=== PATIENT | female | born 1945 | race Caucasian/White ===

== ENCOUNTER 2016-11-18 15:56 | Inpatient (IN) | payer MEDICARE, MEDICAID ==
[~2016-11-18] VITALS: Ht 137.2 cm; Wt 56.2 kg
[2016-11-18] VITALS (20 sets, daily range): BP systolic 92–162; BP diastolic 35–80
[~2016-11-18 15:56] MED LIST: ACET-2605 GT; ACET160S3 GT; ALBU2.5V12 IH; AMIN30LI25 GT; ASCO500S2 GT; ASPI81TA2 GT; ATOR40TA GT; BISA10SU8 RC; BLOO-697 IN; CAPT25TA3 GT; DOCU50LI GT; EPOE1VIA6 SQ; FERR300L GT; FURO20TA4 GT; INSU100V3 SQ; IPRA0.2S9 IH; LACT-96 GT; LORA0.5T GT; MAGN400O6 GT; MONT10TA22 GT; MULT1TAB11 GT; MYCO500T5 GT; NA P133E RC; PANT40SU2 GT; PRED2.5T GT; RIVA10TA GT
[2016-11-18] MEDS ORDERED: ALBUTEROL FS 2.5 MG/3 ML VIAL.NEB ONE ×2 (16:14→17:19)
[2016-11-18] MEDS ORDERED: IPRATROPIUM NEB FS 0.5 MG/2.5 ML AMPUL.NEB ONE ×2 (16:14→17:19)
[2016-11-18] MEDS ORDERED: methylPREDNISolone SOD SUCC 125 MG/2ML VIAL ONE (16:18)
[2016-11-18] MEDS ORDERED: ALBUTEROL FS 2.5 MG/3 ML VIAL.NEB NEB ONE (16:30)
[2016-11-18] MEDS ORDERED: methylPREDNISolone SOD SUCC 125 MG/2ML VIAL IV ONE (16:30)
[2016-11-18] MEDS ORDERED: IPRATROPIUM NEB FS 0.5 MG/2.5 ML AMPUL.NEB NEB ONE ×2 (16:30→17:30)
[2016-11-18 16:35] LABS: DIFF TOTAL % 100 %; EOSINOPHILS # (AUTO) 0.5 /CMM (0.0-0.7); EOSINOPHILS % (AUTO) 4.2 % (0.0-6.0); HEMATOCRIT 39 % (33-45); HEMOGLOBIN 12.2 g/dL (11.5-14.8); LYMPHOCYTES # (AUTO) 0.4 /CMM (0.8-4.8); LYMPHOCYTES % (AUTO) 3.2 % (20.0-44.0); MEAN CORPUSCULAR HEMOGLOBIN 30 PG (26.0-33.0); MEAN CORPUSCULAR HGB CONC 31 g/dl (31.0-36.0); MEAN CORPUSCULAR VOLUME 95 fL (82-100); MONOCYTES # (AUTO) 0.4 /CMM (0.1-1.30); MONOCYTES % (AUTO) 3.6 % (2.0-12.0); PLATELET COUNT (AUTO) 309 /CMM (150-450); RED BLOOD CELL COUNT(AUTO) 4.12 MIL/uL (4.0-5.2); WHITE BLOOD COUNT (AUTO) 12.3 K/uL (4.3-11.0)
[2016-11-18 16:57] LABS: ANION GAP 11 (5-14); CALCIUM, SERUM 8.6 mg/dL (8.5-10.1); CARBON DIOXIDE 33 mmol/L (21-32); CHLORIDE 104 mmol/L (98-107); CREATININE 1.2 mg/dL (0.6-1.3); GLUCOSE 197 mg/dL (74-106); POTASSIUM 4.5 mmol/L (3.5-5.1); SODIUM SERUM 143 mmol/L (136-145); TROPONIN I < 0.017 ng/mL (0.00-0.056); UREA NITROGEN, BLOOD 30 mg/dL (7-18)
[2016-11-18 17:01] LABS: LACTIC ACID 2.1 mmol/L (0.4-2.0)
[2016-11-18 17:10] LABS: ALANINE AMINOTRANSFERASE 51 U/L (12-78); ALBUMIN 3.5 g/dL (3.4-5.0); ASPARTATE AMINOTRANSFERASE 37 U/L (15-37); BILIRUBIN,DIRECT 0.1 mg/dL (0.0-0.2); BILIRUBIN,TOTAL 0.4 mg/dL (0.2-1.0); INDIRECT BILIRUBIN 0.3 mg/dL (0.0-1.1); TOTAL PROTEIN, SERUM 7.9 g/dL (6.4-8.2)
[2016-11-18 17:15] LABS: INR 0.97 (0.87-1.13); PROTHROMBIN TIME 10.5 SECS (9.5-12.7)
[2016-11-18 17:27] LABS: *LACTIC ACID REFLEX FLAG YES
[2016-11-18] MEDS ORDERED: PIPERACILLIN /TAZOBACTAM 3.375 G in IV D5W 50 ML IV ONE (17:30)
[2016-11-18] MEDS ORDERED: VANCOMYCIN 1 GM in IV D5W 250 ML IV ONE (17:30)
[2016-11-18] MEDS ORDERED: ALBUTEROL FS 2.5 MG/3 ML VIAL.NEB CONTNEB ONE (17:30)
[2016-11-18] MEDS ORDERED: diphenhydrAMINE HCL 50 MG/ML VIAL IV ONE (17:30)
[2016-11-18] MEDS ORDERED: IV SET PRIMARY PUMP SET 1 EA INFUS.SET MC ONE ×2 (17:46→22:22)
[2016-11-18] MEDS ORDERED: diphenhydrAMINE HCL 50 MG/ML VIAL ONE (17:46)
[2016-11-18] MEDS ORDERED: IV SET PRIMARY 1 EA INFUS.SET MC ONE (18:02)
[2016-11-18 18:04] LABS: ABG BASE EXCESS -1.1 mmol/L; ABG HCO3 29.2 mmol/L; ABG PCO2 81.1 mmHg (35.0-45.0); ABG PH 7.174 (7.350-7.450); ABG TOTAL HEMOGLOBIN 12.4 G/dL (12.0-16.0); AaDO2 39.9 mmHg; O2Hb 97.3 % (94.0-97.0)
[2016-11-18] MEDS ORDERED: IV NS 0.9% 1,000 ML BAG IV ONE (18:30)
[2016-11-18] MEDS ORDERED: ALBUTEROL FS 2.5 MG/0.5 ML VIAL.NEB IH PRN (20:30)
[2016-11-18] MEDS ORDERED: EPOETIN ALFA (10,000 UNIT) 10,000 UNIT/ML VIAL SQ SCH (20:30)
[2016-11-18] MEDS ORDERED: IPRATROPIUM NEB FS 0.5 MG/2.5 ML AMPUL.NEB IH PRN (20:30)
[2016-11-18] MEDS ORDERED: BISACODYL SUPP (10 MG) 10 MG/SUPP.RECT SUPP.RECT RC PRN (20:30)
[2016-11-18] MEDS ORDERED: LORAZEPAM 0.5 MG TABLET GT PRN (20:30)
[2016-11-18] MEDS ORDERED: NA PHOS,M-B/NA PHOS,DI-BA 1 EA ENEMA RC PRN (20:30)
[2016-11-18] MEDS ORDERED: FIBERSOURCE HN 1,000 ML BOTTLE GT PRN (21:00)
[2016-11-18] MEDS ORDERED: FEE PK DOSING 1 MIN EA MC ONE (21:07)
[2016-11-18] MEDS: ATORVASTATIN 40 MG TABLET GT SCH (21:55)
[2016-11-18] MEDS: CAPTOPRIL 25 MG TABLET GT SCH (21:55)
[2016-11-18] MEDS: MONTELUKAST SODIUM (10MG) 10 MG TABLET GT SCH (21:55)
[2016-11-18] MEDS ORDERED: SECONDARY IV SET 1 EA INFUS.SET MC ONE (22:22)
[2016-11-18] MEDS ORDERED: IV NS 0.9% 250 ML IV ONE (22:23)
[2016-11-18] MEDS: PIPERACILLIN /TAZOBACTAM 3.375 G in IV D5W 50 ML IV SCH ×2 (22:28→23:52)
[2016-11-18] MEDS: IV NS 0.9% 250 ML IV PRN (22:28)
[2016-11-18] MEDS: ACETAMINOPHEN 650 MG/20.3 ML UDC GT PRN (22:29)
[2016-11-18] MEDS ORDERED: MAGNESIUM HYDROXIDE 30 ML UDC PO PRN (22:30)
[2016-11-18] MEDS ORDERED: MAG HYDROX/AL HYDROX/SIMETH 30 ML UDC PO PRN (22:30)
[2016-11-18] MEDS ORDERED: ACETAMINOPHEN 325 MG TABLET PO PRN (22:30)
[2016-11-18] MEDS ORDERED: ONDANSETRON HCL/PF 4 MG/2 ML VIAL IVP PRN (22:30)
[2016-11-18] MEDS ORDERED: Z GUARD REMEDY 2 OZ OINT TP PRN (22:30)
[2016-11-18] MEDS ORDERED: HYDROCODONE/APAP 5/325MG 1 EACH TABLET PO PRN (22:30)
[2016-11-18] MEDS ORDERED: ENOXAPARIN SODIUM 40 MG/0.4 ML DISP.SYRIN SQ SCH (22:30)
[2016-11-18] MEDS: BLOOD SUGAR DIAGNOSTIC 1 EACH STRIP IN SCH (23:52)
[2016-11-19] VITALS (54 sets, daily range): BP systolic 80–137; BP diastolic 49–88
[2016-11-19] MEDS: INSULIN REGULAR, HUMAN 100 UNIT/ML 3 ML VIAL SQ PRN (00:16)
[2016-11-19] MEDS ORDERED: DEXTROSE 50%-WATER 50 ML DISP.SYRIN IV PRN (00:30)
[2016-11-19] MEDS: ALBUTEROL FS 2.5 MG/0.5 ML VIAL.NEB IH SCH ×4 (01:30→19:00)
[2016-11-19] MEDS: IPRATROPIUM NEB FS 0.5 MG/2.5 ML AMPUL.NEB IH SCH ×4 (02:13→19:01)
[2016-11-19 04:53] LABS: DIFF TOTAL % 100 %; HEMATOCRIT 32 % (33-45); HEMOGLOBIN 10.3 g/dL (11.5-14.8); LYMPHOCYTES # (AUTO) 0.2 /CMM (0.8-4.8); LYMPHOCYTES % (AUTO) 1.6 % (20.0-44.0); MEAN CORPUSCULAR HEMOGLOBIN 31 PG (26.0-33.0); MEAN CORPUSCULAR HGB CONC 32 g/dl (31.0-36.0); MEAN CORPUSCULAR VOLUME 95 fL (82-100); MONOCYTES # (AUTO) 0.7 /CMM (0.1-1.30); NEUTROPHILS # (AUTO) 12.3 /CMM (1.8-8.9); NEUTROPHILS % (AUTO) 93.4 % (43.0-81.0); PLATELET COUNT (AUTO) 274 /CMM (150-450); RED BLOOD CELL COUNT(AUTO) 3.37 MIL/uL (4.0-5.2); WHITE BLOOD COUNT (AUTO) 13.1 K/uL (4.3-11.0)
[2016-11-19] MEDS: CAPTOPRIL 25 MG TABLET GT SCH ×2 (05:00→13:52)
[2016-11-19 05:08] LABS: CALCIUM, SERUM 8.8 mg/dL (8.5-10.1); CREATININE 1.4 mg/dL (0.6-1.3); PHOSPHORUS 3.4 mg/dL (2.5-4.9); POTASSIUM 3.8 mmol/L (3.5-5.1)
[2016-11-19] MEDS: BLOOD SUGAR DIAGNOSTIC 1 EACH STRIP IN SCH ×4 (06:13→23:09)
[2016-11-19] MEDS: PIPERACILLIN /TAZOBACTAM 3.375 G in IV D5W 50 ML IV SCH ×4 (06:13→23:08)
[2016-11-19] MEDS ORDERED: PANTOPRAZOLE 40 MG TABLET.DR PO SCH (07:30)
[2016-11-19] MEDS ORDERED: ACETAMINOPHEN ES 500 MG TABLET GT PRN (08:30)
[2016-11-19] MEDS: DOCUSATE SODIUM LIQ 100 MG/10 ML UDC GT SCH (08:37)
[2016-11-19] MEDS: FERROUS SULFATE UDC 300 MG/5 ML UDC GT SCH ×3 (08:37→17:05)
[2016-11-19] MEDS: predniSONE 5 MG TABLET GT SCH (08:37)
[2016-11-19] MEDS: MAGNESIUM HYDROXIDE 30 ML UDC GT SCH (08:37)
[2016-11-19] MEDS: FUROSEMIDE 20 MG TABLET GT SCH (08:37)
[2016-11-19] MEDS: ASPIRIN 81 MG TAB.CHEW GT SCH (08:37)
[2016-11-19] MEDS: PANTOPRAZOLE 40 MG/PACK PACK GT SCH (08:38)
[2016-11-19] MEDS: MULTIVIT, IRON, MIN NO. 8, FA 1 TAB TABLET GT SCH (08:38)
[2016-11-19] MEDS: PROSOURCE / PROSTAT (PYXIS) 30 ML UDC GT SCH (08:38)
[2016-11-19] MEDS: ASCORBIC ACID 500 MG TABLET GT SCH (08:38)
[2016-11-19] MEDS: ACETAMINOPHEN 650 MG/20.3 ML UDC GT SCH (08:38)
[2016-11-19] MEDS ORDERED: RIVAROXABAN 10 MG TABLET GT SCH ×2 (09:00)
[2016-11-19 09:27] LABS: THYROID STIMULATING HORMONE 1.068 uIU/mL (0.358-3.74)
[2016-11-19] MEDS: IV NS 0.9% 1,000 ML IV PRN ×2 (09:32→15:17)
[2016-11-19] MEDS: MYCOPHENOLATE MOFETIL SUSP 500 MG/2.5 ML UDC GT SCH ×2 (11:42→17:05)
[2016-11-19] MEDS ORDERED: FIBERSOURCE HN 1,000 ML BOTTLE GT PRN (13:18)
[2016-11-19 16:48] LABS: CREATININE, URINE 62.3 MG/DL (30.0-125.0)
[2016-11-19] MEDS: VANCOMYCIN 1 GM in IV D5W 250 ML IV SCH ×2 (17:06→18:37)
[2016-11-19] MEDS: RIVAROXABAN 10 MG TABLET GT SCH (17:06)
[2016-11-19 17:25] LABS: ADD UA MICROSCOPIC NO; KETONES,URINE NEGATIVE (NEGATIVE); LEUKOCYTE ESTERASE ,URINE NEGATIVE (NEGATIVE)
[2016-11-19] MEDS: LACTOBACILLUS RHAMNOSUS GG 1 EACH CAP.SPRINK GT SCH (18:36)
[2016-11-19] MEDS: CAPTOPRIL 12.5 MG TABLET GT SCH (20:26)
[2016-11-19] MEDS: MONTELUKAST SODIUM (10MG) 10 MG TABLET GT SCH (21:52)
[2016-11-19] MEDS: ATORVASTATIN 40 MG TABLET GT SCH (21:52)
[2016-11-19] MEDS: ACETAMINOPHEN 650 MG/20.3 ML UDC GT PRN (23:09)
[2016-11-19] MEDS: IV NS 0.9% 250 ML IV PRN (23:09)
[2016-11-19] MEDS: diphenhydrAMINE HCL 50 MG/ML VIAL IV PRN (23:10)
[2016-11-20] VITALS (47 sets, daily range): BP systolic 92–152; BP diastolic 54–84
[2016-11-20] MEDS: ALBUTEROL FS 2.5 MG/0.5 ML VIAL.NEB IH SCH ×4 (01:22→19:57)
[2016-11-20] MEDS: IPRATROPIUM NEB FS 0.5 MG/2.5 ML AMPUL.NEB IH SCH ×4 (01:22→19:57)
[2016-11-20] MEDS: MORPHINE SULFATE INJ 2 MG/ML DISP.SYRIN IV PRN ×2 (01:37→10:10)
[2016-11-20 05:01] LABS: HEMATOCRIT 32 % (33-45); HEMOGLOBIN 9.9 g/dL (11.5-14.8); MEAN CORPUSCULAR HEMOGLOBIN 30 PG (26.0-33.0); MEAN CORPUSCULAR HGB CONC 31 g/dl (31.0-36.0); MEAN CORPUSCULAR VOLUME 95 fL (82-100); PLATELET COUNT (AUTO) 247 /CMM (150-450); RED BLOOD CELL COUNT(AUTO) 3.34 MIL/uL (4.0-5.2); WHITE BLOOD COUNT (AUTO) 11.2 K/uL (4.3-11.0)
[2016-11-20 05:02] LABS: BASOPHILS # (AUTO) 0.1 /CMM (0.0-0.2); BASOPHILS % (AUTO) 0.8 % (0.0-2.0); DIFF TOTAL % 100 %; EOSINOPHILS # (AUTO) 2.2 /CMM (0.0-0.7); EOSINOPHILS % (AUTO) 19.8 % (0.0-6.0); LYMPHOCYTES # (AUTO) 0.6 /CMM (0.8-4.8); LYMPHOCYTES % (AUTO) 4.9 % (20.0-44.0); MONOCYTES # (AUTO) 0.9 /CMM (0.1-1.30); MONOCYTES % (AUTO) 7.7 % (2.0-12.0); NEUTROPHILS # (AUTO) 7.5 /CMM (1.8-8.9); NEUTROPHILS % (AUTO) 66.8 % (43.0-81.0)
[2016-11-20 05:24] LABS: TROPONIN I < 0.017 ng/mL (0.00-0.056)
[2016-11-20 05:31] LABS: ANION GAP 13 (5-14); BILIRUBIN,TOTAL 0.5 mg/dL (0.2-1.0); CALCIUM, SERUM 8.7 mg/dL (8.5-10.1); CARBON DIOXIDE 27 mmol/L (21-32); CHLORIDE 109 mmol/L (98-107); CREATININE 1.3 mg/dL (0.6-1.3); GLUCOSE 122 mg/dL (74-106); PHOSPHORUS 2.3 mg/dL (2.5-4.9); POTASSIUM 3.9 mmol/L (3.5-5.1); SODIUM SERUM 145 mmol/L (136-145); UREA NITROGEN, BLOOD 39 mg/dL (7-18)
[2016-11-20 05:32] LABS: ALANINE AMINOTRANSFERASE 44 U/L (12-78); ALBUMIN 2.9 g/dL (3.4-5.0); ASPARTATE AMINOTRANSFERASE 22 U/L (15-37); TOTAL PROTEIN, SERUM 6.5 g/dL (6.4-8.2)
[2016-11-20] MEDS: PIPERACILLIN /TAZOBACTAM 3.375 G in IV D5W 50 ML IV SCH ×4 (05:44→23:11)
[2016-11-20] MEDS: BLOOD SUGAR DIAGNOSTIC 1 EACH STRIP IN SCH ×4 (05:45→23:12)
[2016-11-20] MEDS: CAPTOPRIL 12.5 MG TABLET GT SCH ×3 (06:06→21:45)
[2016-11-20] MEDS: DOCUSATE SODIUM LIQ 100 MG/10 ML UDC GT SCH (09:00)
[2016-11-20] MEDS: ACETAMINOPHEN 650 MG/20.3 ML UDC GT SCH (09:00)
[2016-11-20] MEDS: MAGNESIUM HYDROXIDE 30 ML UDC GT SCH (09:00)
[2016-11-20] MEDS: ASPIRIN 81 MG TAB.CHEW GT SCH (09:11)
[2016-11-20] MEDS: FUROSEMIDE 20 MG TABLET GT SCH (09:11)
[2016-11-20] MEDS: MYCOPHENOLATE MOFETIL SUSP 500 MG/2.5 ML UDC GT SCH ×2 (09:11→17:24)
[2016-11-20] MEDS: FERROUS SULFATE UDC 300 MG/5 ML UDC GT SCH ×3 (09:11→17:24)
[2016-11-20] MEDS: LACTOBACILLUS RHAMNOSUS GG 1 EACH CAP.SPRINK GT SCH ×2 (09:11→17:24)
[2016-11-20] MEDS: PANTOPRAZOLE 40 MG/PACK PACK GT SCH (09:12)
[2016-11-20] MEDS: MULTIVIT, IRON, MIN NO. 8, FA 1 TAB TABLET GT SCH (09:12)
[2016-11-20] MEDS: PROSOURCE / PROSTAT (PYXIS) 30 ML UDC GT SCH (09:12)
[2016-11-20] MEDS: predniSONE 5 MG TABLET GT SCH (09:12)
[2016-11-20] MEDS: ASCORBIC ACID 500 MG TABLET GT SCH (09:12)
[2016-11-20] MEDS: IV NS 0.9% 1,000 ML IV PRN (09:13)
[2016-11-20] MEDS: ACETAMINOPHEN 650 MG/20.3 ML UDC GT PRN (12:18)
[2016-11-20] MEDS: INSULIN REGULAR, HUMAN 100 UNIT/ML 3 ML VIAL SQ PRN ×2 (12:19→17:26)
[2016-11-20] MEDS ORDERED: NEUTRA PHOS 1 POWD.PACKET GT ONE (13:30)
[2016-11-20] MEDS: EPOETIN ALFA (10,000 UNIT) 10,000 UNIT/ML VIAL SQ SCH (15:55)
[2016-11-20] MEDS: RIVAROXABAN 10 MG TABLET GT SCH (17:25)
[2016-11-20] MEDS: VANCOMYCIN 1 GM in IV D5W 250 ML IV SCH (17:26)
[2016-11-20] MEDS: ATORVASTATIN 40 MG TABLET GT SCH (21:44)
[2016-11-20] MEDS: MONTELUKAST SODIUM (10MG) 10 MG TABLET GT SCH (21:46)
[2016-11-20] MEDS: MUPIROCIN OINT 2% 22 GM TUBE TP SCH (21:49)
[2016-11-21] VITALS (33 sets, daily range): BP systolic 92–135; BP diastolic 43–89
[2016-11-21] MEDS: ALBUTEROL FS 2.5 MG/0.5 ML VIAL.NEB IH SCH ×4 (00:59→19:55)
[2016-11-21] MEDS: IPRATROPIUM NEB FS 0.5 MG/2.5 ML AMPUL.NEB IH SCH ×4 (00:59→19:55)
[2016-11-21] MEDS: IV NS 0.9% 1,000 ML IV PRN ×2 (01:22→08:35)
[2016-11-21] MEDS: FIBERSOURCE HN 1,000 ML BOTTLE GT PRN (01:23)
[2016-11-21 05:06] LABS: BASOPHILS # (AUTO) 0.1 /CMM (0.0-0.2); BASOPHILS % (AUTO) 0.6 % (0.0-2.0); DIFF TOTAL % 100 %; EOSINOPHILS # (AUTO) 2.7 /CMM (0.0-0.7); EOSINOPHILS % (AUTO) 21.3 % (0.0-6.0); HEMATOCRIT 31 % (33-45); LYMPHOCYTES # (AUTO) 0.4 /CMM (0.8-4.8); MEAN CORPUSCULAR HEMOGLOBIN 30 PG (26.0-33.0); MEAN CORPUSCULAR HGB CONC 32 g/dl (31.0-36.0); MEAN CORPUSCULAR VOLUME 94 fL (82-100); MONOCYTES # (AUTO) 0.9 /CMM (0.1-1.30); MONOCYTES % (AUTO) 7.4 % (2.0-12.0); NEUTROPHILS # (AUTO) 8.6 /CMM (1.8-8.9); NEUTROPHILS % (AUTO) 67.7 % (43.0-81.0); PLATELET COUNT (AUTO) 267 /CMM (150-450); RED BLOOD CELL COUNT(AUTO) 3.34 MIL/uL (4.0-5.2); WHITE BLOOD COUNT (AUTO) 12.7 K/uL (4.3-11.0)
[2016-11-21 05:20] LABS: ALBUMIN 2.8 g/dL (3.4-5.0); BILIRUBIN,TOTAL 0.6 mg/dL (0.2-1.0); CALCIUM, SERUM 8.7 mg/dL (8.5-10.1); CREATININE 1.2 mg/dL (0.6-1.3); PHOSPHORUS 3.2 mg/dL (2.5-4.9); POTASSIUM 3.5 mmol/L (3.5-5.1); TOTAL PROTEIN, SERUM 6.5 g/dL (6.4-8.2)
[2016-11-21] MEDS: BLOOD SUGAR DIAGNOSTIC 1 EACH STRIP IN SCH ×3 (05:33→16:57)
[2016-11-21] MEDS: PIPERACILLIN /TAZOBACTAM 3.375 G in IV D5W 50 ML IV SCH ×3 (05:33→17:00)
[2016-11-21] MEDS: CAPTOPRIL 12.5 MG TABLET GT SCH (05:33)
[2016-11-21 05:54] LABS: BASOPHILS % (MANUAL) 0 % (0.0-2.0); EOSINOPHILS % (MANUAL) 17 % (0-4); LYMPHOCYTES % (MANUAL) 3 % (16-48); PLATELET ESTIMATE ADEQUATE; RBC MORPHOLOGY COMMENT NORMAL RBC MORPH
[2016-11-21] MEDS: DOCUSATE SODIUM LIQ 100 MG/10 ML UDC GT SCH (08:28)
[2016-11-21] MEDS: LACTOBACILLUS RHAMNOSUS GG 1 EACH CAP.SPRINK GT SCH ×2 (08:28→16:55)
[2016-11-21] MEDS: ASCORBIC ACID 500 MG TABLET GT SCH (08:28)
[2016-11-21] MEDS: FERROUS SULFATE UDC 300 MG/5 ML UDC GT SCH ×3 (08:28→16:54)
[2016-11-21] MEDS: MYCOPHENOLATE MOFETIL SUSP 500 MG/2.5 ML UDC GT SCH ×2 (08:28→16:54)
[2016-11-21] MEDS: PANTOPRAZOLE 40 MG/PACK PACK GT SCH (08:28)
[2016-11-21] MEDS: PROSOURCE / PROSTAT (PYXIS) 30 ML UDC GT SCH (08:29)
[2016-11-21] MEDS: predniSONE 5 MG TABLET GT SCH (08:29)
[2016-11-21] MEDS: MULTIVIT, IRON, MIN NO. 8, FA 1 TAB TABLET GT SCH (08:29)
[2016-11-21] MEDS: ACETAMINOPHEN 650 MG/20.3 ML UDC GT SCH (08:30)
[2016-11-21] MEDS: MAGNESIUM HYDROXIDE 30 ML UDC GT SCH (08:30)
[2016-11-21] MEDS: MUPIROCIN OINT 2% 22 GM TUBE TP SCH ×2 (08:32→21:58)
[2016-11-21] MEDS ORDERED: Z GUARD REMEDY 2 OZ OINT TP PRN (09:00)
[2016-11-21] MEDS ORDERED: POTASSIUM CHLORIDE 20 MEQ POWDER PACKET GT ONE (09:00)
[2016-11-21] MEDS ORDERED: POTASSIUM CHLORIDE 20 MEQ TAB.PRT.SR PO SCH (09:00)
[2016-11-21] MEDS: Z GUARD REMEDY 2 OZ OINT TP SCH ×2 (09:17→16:55)
[2016-11-21] MEDS: MORPHINE SULFATE INJ 2 MG/ML DISP.SYRIN IV PRN (09:46)
[2016-11-21] MEDS: diphenhydrAMINE HCL 50 MG/ML VIAL IV PRN (09:46)
[2016-11-21] MEDS: HYDROGEL DRESSING 90 GM TUBE TP SCH (10:13)
[2016-11-21] MEDS: IV 1/2NS 1000 ML 1,000 ML IV PRN (10:13)
[2016-11-21] MEDS: INSULIN REGULAR, HUMAN 100 UNIT/ML 3 ML VIAL SQ PRN (11:59)
[2016-11-21] MEDS: RIVAROXABAN 10 MG TABLET GT SCH (16:55)
[2016-11-21] MEDS: ATORVASTATIN 40 MG TABLET GT SCH (21:59)
[2016-11-21] MEDS: MONTELUKAST SODIUM (10MG) 10 MG TABLET GT SCH (21:59)
[2016-11-22] VITALS: BP 126/62
[2016-11-22] MEDS: PIPERACILLIN /TAZOBACTAM 3.375 G in IV D5W 50 ML IV SCH ×3 (00:03→12:55)
[2016-11-22] MEDS: BLOOD SUGAR DIAGNOSTIC 1 EACH STRIP IN SCH ×4 (00:07→17:03)
[2016-11-22] MEDS: ALBUTEROL FS 2.5 MG/0.5 ML VIAL.NEB IH SCH ×3 (01:34→13:11)
[2016-11-22] MEDS: IPRATROPIUM NEB FS 0.5 MG/2.5 ML AMPUL.NEB IH SCH ×3 (01:34→13:11)
[2016-11-22 04:00] VITALS: BP 112/66
[2016-11-22] MEDS: INSULIN REGULAR, HUMAN 100 UNIT/ML 3 ML VIAL SQ PRN ×2 (05:31→12:57)
[2016-11-22 07:22] LABS: BASOPHILS # (AUTO) 0.1 /CMM (0.0-0.2); BASOPHILS % (AUTO) 0.5 % (0.0-2.0); EOSINOPHILS # (AUTO) 2.7 /CMM (0.0-0.7); HEMATOCRIT 31 % (33-45); HEMOGLOBIN 9.7 g/dL (11.5-14.8); LYMPHOCYTES # (AUTO) 0.4 /CMM (0.8-4.8); LYMPHOCYTES % (AUTO) 3.6 % (20.0-44.0); MEAN CORPUSCULAR HEMOGLOBIN 30 PG (26.0-33.0); MEAN CORPUSCULAR HGB CONC 32 g/dl (31.0-36.0); MEAN CORPUSCULAR VOLUME 94 fL (82-100); MONOCYTES # (AUTO) 0.8 /CMM (0.1-1.30); MONOCYTES % (AUTO) 7.3 % (2.0-12.0); NEUTROPHILS # (AUTO) 6.6 /CMM (1.8-8.9); NEUTROPHILS % (AUTO) 63.3 % (43.0-81.0); PLATELET COUNT (AUTO) 251 /CMM (150-450); RED BLOOD CELL COUNT(AUTO) 3.25 MIL/uL (4.0-5.2); WHITE BLOOD COUNT (AUTO) 10.5 K/uL (4.3-11.0)
[2016-11-22 07:29] LABS: DIFF TOTAL % 100 %; EOSINOPHILS % (AUTO) 25.3 % (0.0-6.0)
[2016-11-22 07:36] LABS: CALCIUM, SERUM 8.7 mg/dL (8.5-10.1); CREATININE 1.2 mg/dL (0.6-1.3); PHOSPHORUS 3.1 mg/dL (2.5-4.9); POTASSIUM 3.6 mmol/L (3.5-5.1)
[2016-11-22 08:00] VITALS: BP 127/63
[2016-11-22] MEDS: DOCUSATE SODIUM LIQ 100 MG/10 ML UDC GT SCH (09:00)
[2016-11-22] MEDS: MAGNESIUM HYDROXIDE 30 ML UDC GT SCH (09:00)
[2016-11-22] MEDS: PANTOPRAZOLE 40 MG/PACK PACK GT SCH (09:10)
[2016-11-22] MEDS: MULTIVIT, IRON, MIN NO. 8, FA 1 TAB TABLET GT SCH (09:10)
[2016-11-22] MEDS: ACETAMINOPHEN 650 MG/20.3 ML UDC GT SCH (09:10)
[2016-11-22] MEDS: PROSOURCE / PROSTAT (PYXIS) 30 ML UDC GT SCH (09:10)
[2016-11-22] MEDS: ASCORBIC ACID 500 MG TABLET GT SCH (09:10)
[2016-11-22] MEDS: FERROUS SULFATE UDC 300 MG/5 ML UDC GT SCH ×3 (09:10→17:03)
[2016-11-22] MEDS: MYCOPHENOLATE MOFETIL SUSP 500 MG/2.5 ML UDC GT SCH ×2 (09:11→17:12)
[2016-11-22] MEDS: predniSONE 5 MG TABLET GT SCH (09:11)
[2016-11-22] MEDS: HYDROGEL DRESSING 90 GM TUBE TP SCH (09:13)
[2016-11-22] MEDS: MUPIROCIN OINT 2% 22 GM TUBE TP SCH (09:14)
[2016-11-22] MEDS: Z GUARD REMEDY 2 OZ OINT TP SCH ×2 (09:14→17:12)
[2016-11-22 09:31] LABS: EOSINOPHILS % (MANUAL) 14 % (0-4); LYMPHOCYTES % (MANUAL) 6 % (16-48)
[2016-11-22] MEDS: FIBERSOURCE HN 1,000 ML BOTTLE GT PRN (09:42)
[2016-11-22 12:00] VITALS: BP 114/68
[2016-11-22] MEDS ORDERED: PIPE3.376 IV (12:13)
[2016-11-22] MEDS ORDERED: SECONDARY IV SET 1 EA INFUS.SET MC ONE (12:54)
[2016-11-22] MEDS ORDERED: IV SET PRIMARY PUMP SET 1 EA INFUS.SET MC ONE (12:54)
[2016-11-22] MEDS: IV 1/2NS 1000 ML 1,000 ML IV PRN (12:55)
[2016-11-22] MEDS: EPOETIN ALFA (10,000 UNIT) 10,000 UNIT/ML VIAL SQ SCH (14:15)
[2016-11-22 15:46] LABS: ABG BASE EXCESS 0.1 mmol/L; ABG PH 7.352 (7.350-7.450); ABG PO2 141.4 mmHg (75.0-100.0); ABG TOTAL HEMOGLOBIN 10.7 G/dL (12.0-16.0); ALLEN TEST Pass; AaDO2 88.6 mmHg; O2Hb 96.2 % (94.0-97.0)
[2016-11-22 16:00] VITALS: BP_SYST 108; BP_DIAS 54; BP_DIAS 68
[2016-11-22] MEDS: RIVAROXABAN 10 MG TABLET GT SCH (17:04)
[2016-11-22] MEDS: MORPHINE SULFATE INJ 2 MG/ML DISP.SYRIN IV PRN (17:05)
== END 2016-11-22 18:24 | DRG 870 ==
LOC: ER 15:58 → ICU 19:04 → TELE1 11-21 16:26
PROVIDERS: ADMIT Internal Medicine; ATTEND Internal Medicine
PROC: 5A1955Z Respiratory Ventilation, Greater than 96 Consecutive Hours (ICD-10-PCS; principal; 2016-11-18)
DX: A41.9 Sepsis, unspecified organism (principal); J18.9 Pneumonia, unspecified organism; J96.21 Acute and chronic respiratory failure with hypoxia; J96.22 Acute and chronic respiratory failure with hypercapnia; N17.0 Acute kidney failure with tubular necrosis; I46.9 Cardiac arrest, cause unspecified; J44.0 Chronic obstructive pulmonary disease with (acute) lower respiratory infection; E87.2 Acidosis; E87.0 Hyperosmolality and hypernatremia; J98.11 Atelectasis; Z86.73 Personal history of transient ischemic attack (TIA), and cerebral infarction without residual deficits; R13.10 Dysphagia, unspecified; N18.9 Chronic kidney disease, unspecified; E11.22 Type 2 diabetes mellitus with diabetic chronic kidney disease; Z93.0 Tracheostomy status; D63.8 Anemia in other chronic diseases classified elsewhere; R65.20 Severe sepsis without septic shock; I95.9 Hypotension, unspecified; E86.0 Dehydration; K57.90 Diverticulosis of intestine, part unspecified, without perforation or abscess without bleeding
CPT/HCPCS: 31720; 36415; 36600; 71010-TC; 80048-TC; 80053-TC; 80061-TC; 80076-TC; 80202-TC; 81000-TC; 82553-TC; 82570-TC; 82728-TC; 82803-TC; 82962-TC; 83540-TC; 83605-TC; 83735-TC; 83880; 84100-TC; 84300-TC; 84439-TC; 84443-TC; 84484-TC; 85025-TC; 85730-TC; 87040-TC; 87081-TC; 87186-TC; 93307-TC; 94002-TC; 94003-TC; A4606; A6248; J0885; J1200; J1815; J2270; J2543; J2930; J3370; J3490; J7030; J7050; J7060; J7512; J7517; Z7610

== ENCOUNTER 2017-03-25 15:13 | Inpatient (IN) | payer MEDICARE, MEDICAID ==
[~2017-03-25] VITALS: Ht 157.5 cm; Wt 57.2 kg
[~2017-03-25 15:13] MED LIST changes: -ACET160S3 GT; +ACET650S26 GT; -ALBU2.5V12 IH; +ALBU2.5V13 IH; +PIPE3.376 IV
--- NOTE | 2017-03-25 15:15 | NUR ---
moy from [facility] sent by Dr Wolf for periorbital skin. Pt trach/vent dependent. aaox1. No respiratory distress noted. VSS. Connected to monitor.
[2017-03-25 15:30] VITALS: BP 124/83
--- NOTE | 2017-03-25 15:45 | NUR ---
PT TAKEN TO CT
--- NOTE | 2017-03-25 16:50 | NUR ---
RENITA PAGED, DR. CAMILLA Butts NIGHT CLEANER
[2017-03-25 17:05] LABS: BASOPHILS # (AUTO) 0.2 /CMM (0.0-0.2); BASOPHILS % (AUTO) 1.6 % (0.0-2.0); EOSINOPHILS # (AUTO) 0.3 /CMM (0.0-0.7); EOSINOPHILS % (AUTO) 2.8 % (0.0-6.0); HEMATOCRIT 38 % (33-45); HEMOGLOBIN 11.4 g/dL (11.5-14.8); LYMPHOCYTES # (AUTO) 0.4 /CMM (0.8-4.8); LYMPHOCYTES % (AUTO) 4.3 % (20.0-44.0); MEAN CORPUSCULAR HEMOGLOBIN 27 PG (26.0-33.0); MEAN CORPUSCULAR HGB CONC 30 g/dl (31.0-36.0); MEAN CORPUSCULAR VOLUME 91 fL (82-100); MONOCYTES # (AUTO) 0.6 /CMM (0.1-1.30); MONOCYTES % (AUTO) 6.2 % (2.0-12.0); NEUTROPHILS # (AUTO) 8.8 /CMM (1.8-8.9); NEUTROPHILS % (AUTO) 85.1 % (43.0-81.0); PLATELET COUNT (AUTO) 291 /CMM (150-450); RDW COEFFICIENT OF VARIATION 14.9 (11.5-15.0); RED BLOOD CELL COUNT(AUTO) 4.16 MIL/uL (4.0-5.2); WHITE BLOOD COUNT (AUTO) 10.3 K/uL (4.3-11.0)
--- NOTE | 2017-03-25 17:15 | NUR ---
[facility] REPAGED
[2017-03-25 17:17] LABS: CALCIUM, SERUM 8.6 mg/dL (8.5-10.1); CARBON DIOXIDE 33 mmol/L (21-32); CHLORIDE 105 mmol/L (98-107); CREATININE 1.1 mg/dL (0.6-1.3); GLUCOSE 136 mg/dL (74-106); POTASSIUM 4.1 mmol/L (3.5-5.1); SODIUM SERUM 141 mmol/L (136-145); UREA NITROGEN, BLOOD 31 mg/dL (7-18)
[2017-03-25 17:21] LABS: INR 1.36 (0.87-1.13); PROTHROMBIN TIME 14.3 SECS (9.5-12.7)
[2017-03-25] MEDS ORDERED: FIBERSOURCE HN 1,000 ML BOTTLE GT PRN ×2 (17:30→21:00)
[2017-03-25] MEDS ORDERED: ACETAMINOPHEN 650 MG/20.3 ML UDC GT PRN (17:30)
[2017-03-25] MEDS ORDERED: BISACODYL SUPP (10 MG) 10 MG/SUPP.RECT SUPP.RECT RC PRN (17:30)
[2017-03-25] MEDS ORDERED: INSULIN REGULAR, HUMAN 100 UNIT/ML 3 ML VIAL SQ PRN (17:30)
[2017-03-25] MEDS ORDERED: NA PHOS,M-B/NA PHOS,DI-BA 1 EA ENEMA RC PRN (17:30)
[2017-03-25] MEDS ORDERED: IV NS 0.9% 500 ML BAG IV ONE (17:30)
[2017-03-25 17:40] VITALS: BP 94/74
[2017-03-25] MEDS ORDERED: IV NS 0.9% 500 ML IV ONE (17:57)
[2017-03-25] MEDS ORDERED: IV SET PRIMARY PUMP SET 1 EA INFUS.SET MC ONE (17:57)
[2017-03-25 19:45] VITALS: BP 113/58
[2017-03-25 20:00] VITALS: BP 113/58
[2017-03-25] MEDS: IPRATROPIUM NEB FS 0.5 MG/2.5 ML AMPUL.NEB IH SCH (20:00)
--- NOTE | 2017-03-25 20:00 | NUR ---
CLARIFIED WITH [facility] PNA VACCINE, RECEIVED JUL 22, 2016, NO FLU VACCINE ON FILE. DR. DAVILA PAGED AND ORDERED FIBERSOURCE VIA GT AT 35 CC/HR AND ORDERED MODERATE SLIDING SCALE.
[2017-03-25] MEDS ORDERED: DEXTROSE 50%-WATER 50 ML DISP.SYRIN IV PRN (20:30)
[2017-03-25] MEDS ORDERED: CAPTOPRIL 25 MG TABLET GT SCH (21:00)
[2017-03-25] MEDS ORDERED: INSULIN REGULAR, HUMAN 100 UNIT/ML 10 ML VIAL ONE (21:56)
[2017-03-25] MEDS: LORAZEPAM 0.5 MG TABLET GT PRN (22:12)
[2017-03-25] MEDS: ATORVASTATIN 40 MG TABLET GT SCH (22:12)
[2017-03-25] MEDS: MYCOPHENOLATE MOFETIL 250 MG CAPSULE PO SCH (22:13)
[2017-03-25] MEDS: CAPTOPRIL 12.5 MG TABLET GT SCH (22:13)
[2017-03-25] MEDS: MONTELUKAST SODIUM (10MG) 10 MG TABLET GT SCH (22:13)
[2017-03-26] VITALS: BP 157/76
[2017-03-26] MEDS ORDERED: BLOOD SUGAR DIAGNOSTIC 1 EACH STRIP IN SCH
[2017-03-26] MEDS: BLOOD SUGAR DIAGNOSTIC 1 EACH STRIP IN SCH ×4 (00:12→17:31)
[2017-03-26] MEDS: INSULIN REGULAR, HUMAN 100 UNIT/ML 3 ML VIAL SQ PRN ×2 (00:23→06:26)
[2017-03-26] MEDS ORDERED: HYDROCORTISONE OINT 1% 28.35 GM TUBE TP ONE (00:24)
--- NOTE | 2017-03-26 00:24 | NUR ---
ACCUCHECK BG 105 MG/DL, NO INSULIN GIVEN
[2017-03-26] MEDS ORDERED: HYDROCORTISONE 2.5% CREAM 28.4 GM TUBE TP PRN (00:30)
[2017-03-26] MEDS: IPRATROPIUM NEB FS 0.5 MG/2.5 ML AMPUL.NEB IH SCH ×4 (00:53→19:46)
[2017-03-26] MEDS ORDERED: HYDROCORTISONE OINT 1% 28.35 GM TUBE TP PRN (01:00)
[2017-03-26 04:00] VITALS: BP 137/65
[2017-03-26] MEDS: CAPTOPRIL 12.5 MG TABLET GT SCH ×3 (05:39→21:28)
--- NOTE | 2017-03-26 06:17 | NUR ---
TEXTED DR. WILD FOR MRI APPROVAL.
--- NOTE | 2017-03-26 06:26 | NUR ---
INSULIN HELD FEEDING NOT GIVEN YET, NO FIBERSOURCE. NOTIFIED DIETARY TO BRING TALIA
--- NOTE | 2017-03-26 06:58 | NUR ---
PATIENT IS ALERT AND AWAKE, NO DISTRESS, VENTILATOR IN GOOD WORKING CONDITION, NO COMPLAIN OF PAIN, SUCTIONED NEEDED, WITH EPISODES OF CONFUSION, GETTING UP IN BED. BED ALARM TURNED ON. NEEDS ATTENDED, CALL LIGHT WITHIN REACH.
--- NOTE | 2017-03-26 07:38 | NUR ---
WIRE SPOOLER OPENING NOTE PATIENT IS ALERT AND ORIENTED x1. NO PAIN AT THIS TIME. NO SOB OR DISTRESS NOTED. CALL LIGHT WITHIN REACH. SAFETY MEASURES IMPLEMENTED. UNDERSTANDS NEPALI AND NODS HEAD. IV INTACT AND PATENT NO REDNESS OR SWELLING NOTED.G-TUBE IN PLACE, FEEDING AT 35 CC/HR TO BE RECEIVED BY DIETARY. WILL CONTINUE TO MONITOR
[2017-03-26 08:00] VITALS: BP 153/73
[2017-03-26] MEDS: PANTOPRAZOLE 40 MG/PACK PACK GT SCH (08:52)
[2017-03-26] MEDS: ASCORBIC ACID SYRUP 500 MG/5 ML UDC GT SCH (08:52)
[2017-03-26] MEDS: MYCOPHENOLATE MOFETIL 250 MG CAPSULE PO SCH ×2 (08:52→21:28)
[2017-03-26] MEDS: ASPIRIN 81 MG TAB.CHEW GT SCH (08:52)
[2017-03-26] MEDS: FERROUS SULFATE UDC 300 MG/5 ML UDC GT SCH ×3 (08:52→17:31)
[2017-03-26] MEDS: DOCUSATE SODIUM LIQ 100 MG/10 ML UDC GT SCH (08:52)
[2017-03-26] MEDS: FIBERSOURCE HN 1,000 ML BOTTLE GT PRN (09:02)
[2017-03-26] MEDS: MAGNESIUM HYDROXIDE 30 ML UDC GT SCH (09:02)
[2017-03-26] MEDS ORDERED: IOHEXOL-300 100 ML VIAL IV ONE (13:49)
[2017-03-26] MEDS ORDERED: IV NS 0.9% 250 ML IV ONE (13:50)
[2017-03-26 16:00] VITALS: BP 141/76
[2017-03-26 16:41] LABS: BASOPHILS % (AUTO) 0.5 % (0.0-2.0); EOSINOPHILS # (AUTO) 1.2 /CMM (0.0-0.7); EOSINOPHILS % (AUTO) 14.5 % (0.0-6.0); HEMATOCRIT 34 % (33-45); HEMOGLOBIN 10.5 g/dL (11.5-14.8); LYMPHOCYTES # (AUTO) 0.5 /CMM (0.8-4.8); LYMPHOCYTES % (AUTO) 5.9 % (20.0-44.0); MEAN CORPUSCULAR HEMOGLOBIN 28 PG (26.0-33.0); MEAN CORPUSCULAR HGB CONC 31 g/dl (31.0-36.0); MEAN CORPUSCULAR VOLUME 92 fL (82-100); MONOCYTES # (AUTO) 0.8 /CMM (0.1-1.30); NEUTROPHILS # (AUTO) 5.6 /CMM (1.8-8.9); NEUTROPHILS % (AUTO) 69.1 % (43.0-81.0); PLATELET COUNT (AUTO) 326 /CMM (150-450); RDW COEFFICIENT OF VARIATION 15.6 (11.5-15.0); RED BLOOD CELL COUNT(AUTO) 3.69 MIL/uL (4.0-5.2); WHITE BLOOD COUNT (AUTO) 8.1 K/uL (4.3-11.0)
[2017-03-26] MEDS ORDERED: EPOETIN ALFA (10,000 UNIT) 10,000 UNIT/ML VIAL SQ SCH (17:00)
--- NOTE | 2017-03-26 18:29 | NUR ---
PURCHASING INTERN CLOSING NOTE PATIENT IS ALERT AND ORIENTED x3. ARABIC SPEAKING. NO PAIN AT THIS TIME. NON VERBAL. CALL LIGHT WITHIN REACH AT ALL TIMES. SAFETY MEASURES IMPLEMENTED. IV INTACT AND PATENT NO REDNESS OR SWELLING NOTED. ON SOFT BILATERAL RESTRAINTS, FREQUENT REPOSITIONING AND OFFERED FOOD AND WATER. CT SCAN AND EEG WERE COMPLETED. MRI BRAIN SCAN CANCELLED. ON VENT, G-TUBE FEEDING AT 35ML/HR. WILL ENDORSE TO MANAGER MANAGING
[2017-03-26] MEDS: ALBUTEROL FS 2.5 MG/3 ML VIAL.NEB NEB SCH (19:46)
[2017-03-26 20:00] VITALS: BP 143/73
--- NOTE | 2017-03-26 20:00 | NUR ---
RECEIVED PATIENT IN BED, ALERT AND AWAKE, WITH EPISODES OF CONFUSION AND GETTING OUT OF BED, NOT IN DISTRESS, VENTILATOR ON GOOD WORKING CONDITION. SUCTIONED NEEDED. G TUBE FEEDING HAS NO RESIDUAL, FLUSHED AND INFUSING WELL. FEEDING TOLERATED WELL, NO ABDOMINAL DISTENTION, NO VOMITING. BILATERAL RESTRAINTS IN PLACE TO PREVENT PATIENT FROM PULLING TRACH AND SCRATCHING SELF. KEPT HOB ELEVATED, REPOSITIONED FOR COMFORT, CALL LIGHT WITHIN REACH.
[2017-03-26] MEDS: MONTELUKAST SODIUM (10MG) 10 MG TABLET GT SCH (21:28)
[2017-03-26] MEDS: ATORVASTATIN 40 MG TABLET GT SCH (21:28)
[2017-03-26] MEDS: DEXAMETHASONE SOD PHOSPHATE 4 MG/ML VIAL IV SCH (21:29)
[2017-03-26 22:00] VITALS: BP 143/73
[2017-03-27] VITALS: BP 138/67
--- NOTE | 2017-03-27 00:07 | NUR ---
DECADRON 4MG IVP GIVEN AT 21:29, DOSE AT 00:00 NOT GIVEN. WILL GIVE NEXT DOSE AT 0500.
[2017-03-27] MEDS: BLOOD SUGAR DIAGNOSTIC 1 EACH STRIP IN SCH ×4 (00:28→18:02)
[2017-03-27] MEDS: INSULIN REGULAR, HUMAN 100 UNIT/ML 3 ML VIAL SQ PRN ×3 (00:33→18:22)
[2017-03-27] MEDS: ALBUTEROL FS 2.5 MG/3 ML VIAL.NEB NEB SCH ×4 (01:35→19:28)
[2017-03-27] MEDS: IPRATROPIUM NEB FS 0.5 MG/2.5 ML AMPUL.NEB IH SCH ×4 (01:35→19:28)
[2017-03-27 04:00] VITALS: BP 144/58
[2017-03-27] MEDS: CAPTOPRIL 12.5 MG TABLET GT SCH ×3 (04:59→21:16)
[2017-03-27] MEDS: DEXAMETHASONE SOD PHOSPHATE 4 MG/ML VIAL IV SCH ×4 (04:59→18:02)
[2017-03-27 06:10] LABS: CA 27.29 19.3 U/mL (0.0-38.6)
[2017-03-27 06:38] LABS: ALANINE AMINOTRANSFERASE 64 U/L (12-78); ALBUMIN 2.7 g/dL (3.4-5.0); ALKALINE PHOSPHATASE 214 U/L (46-116); ASPARTATE AMINOTRANSFERASE 28 U/L (15-37); BILIRUBIN,TOTAL 0.9 mg/dL (0.2-1.0); CALCIUM, SERUM 8.4 mg/dL (8.5-10.1); CARBON DIOXIDE 30 mmol/L (21-32); CHLORIDE 105 mmol/L (98-107); CREATININE 0.9 mg/dL (0.6-1.3); GLUCOSE 165 mg/dL (74-106); POTASSIUM 3.6 mmol/L (3.5-5.1); SODIUM SERUM 141 mmol/L (136-145); TOTAL PROTEIN, SERUM 6.8 g/dL (6.4-8.2); UREA NITROGEN, BLOOD 20 mg/dL (7-18)
--- NOTE | 2017-03-27 07:05 | NUR ---
PATIENT IS ALERT AND AWAKE, NO SOB, NO DISTRESS, REMAINED SINUS GRACIELA, HR NOT GOING DOWN TO 45 BPM, VENTILATOR IN GOOD WORKING CONDITION, PEG TUBE INFUSING WELL. STARTED NEW LINE TO RIGHT HAND. NEEDS ATTENDED, CALL LIGHT WITHIN REACH
--- NOTE | 2017-03-27 07:30 | NUR ---
ELECTRICIAN SUPERVISOR NOTES RECEIVED PATIENT IN BED, AWAKE, NON VERBAL, OPENS EYES SPONTANEOUSLY, OBEYS COMMANDS. NO APPARENT DISTRESS NOTED, NOS SOB NOTED, NO FACIAL GRIMACING NOTED. VENT SETTINGS ORDERED, IV LINE ON LEFT HAND PATENT. WRIST RESTRAINTS OFF, PATIENT IS CALM, AND NOT ATTEMPTING TO PULL ANYTHING OUT, WILL CONTINUE TO ASSESS NEED FOR RESTRAINT. ALL NEEDS MET, KEPT CLEAN AND DRY.
--- NOTE | 2017-03-27 07:42 | NUR ---
SPOKE WITH RN. AWAITING CONSENT FOR COMPUTED TOMOGRAPHY OF CHEST ABDOMEN PELVIS WITH AND WITHOUT CONTRAST. PATIENT TO BE KEPT NPO. RN WILL CALL BACK WHETHER CONSENT IS CONFIRMED.
[2017-03-27 08:00] VITALS: BP 136/68
[2017-03-27] MEDS: ASCORBIC ACID SYRUP 500 MG/5 ML UDC GT SCH (08:41)
[2017-03-27] MEDS: DOCUSATE SODIUM LIQ 100 MG/10 ML UDC GT SCH (08:41)
[2017-03-27] MEDS: FERROUS SULFATE UDC 300 MG/5 ML UDC GT SCH ×3 (08:41→18:01)
[2017-03-27] MEDS: MAGNESIUM HYDROXIDE 30 ML UDC GT SCH (08:41)
[2017-03-27] MEDS: MYCOPHENOLATE MOFETIL 250 MG CAPSULE PO SCH ×2 (08:42→21:16)
[2017-03-27] MEDS: ASPIRIN 81 MG TAB.CHEW GT SCH (08:42)
[2017-03-27] MEDS: PANTOPRAZOLE 40 MG/PACK PACK GT SCH (08:42)
[2017-03-27 11:11] LABS: CANCER AG, 125 9.6 U/mL (0.0-38.1); CANCER AG, 15-3 18.5 U/mL (0.0-25.0); CARCINOEMBRYONIC AG (CEA) 2.1 ng/mL (0.0-4.7)
[2017-03-27 12:00] VITALS: BP 139/75
--- NOTE | 2017-03-27 12:00 | NUR ---
MANAGER FUND NOTES PATIENT WITH BLOOD SUGAR OF 146, NO INSULIN GIVEN DOMINGUEZ TO TUBE FEEDING BEING STOPPED IN PREP FOR CT SCAN.
[2017-03-27] MEDS ORDERED: IV NS 0.9% 250 ML IV ONE ×2 (15:42→16:57)
[2017-03-27] MEDS ORDERED: IOHEXOL-300 100 ML VIAL IV ONE ×2 (15:43→16:57)
[2017-03-27] MEDS ORDERED: CT SWABBABLE VALVE TRANS SET 1 EA INFUS.SET MC ONE ×2 (15:43→16:57)
[2017-03-27 16:00] VITALS: BP 139/71
--- NOTE | 2017-03-27 17:30 | NUR ---
ATMOSPHERIC CHEMIST NOTES PATIENT NOTED WITH INFILTRATED IV , COLD COMPRESS APPLIED, PICTURE TAKEN PLACED IN CHART. WILL CONTINUE TO MONITOR.
[2017-03-27] MEDS: LORAZEPAM 0.5 MG TABLET GT PRN (18:02)
--- NOTE | 2017-03-27 19:20 | NUR ---
RADIATION CONTROL WORKER NOTES PATIENT IN BED, A/0 X 2, NO APPARENT DISTRESS NOTED, NO SOB NOTED, DENIES PAIN. PATIENT NOT RESTRAINED DURING SHIFT, PATIENT WAS VERY COOPERATIVE, NOT ATTEMPTING TO PULL OUT LINES. IV LINE ON RIGHT FORE ARM PATENT, PREVIOUS IV ON LEFT FOREARM INFILTRATED, NOTED WITH SWELLING. VENT SETTINGS ORDERED. ALL DUE MEDS GIVEN, KEPT CLEAN AND DRY. WILL ENDORSE CARE TO PM SHIFT.
[2017-03-27 20:00] VITALS: BP 132/62
[2017-03-27] MEDS: ATORVASTATIN 40 MG TABLET GT SCH (21:16)
[2017-03-27] MEDS: MONTELUKAST SODIUM (10MG) 10 MG TABLET GT SCH (21:16)
[2017-03-28] VITALS: BP 141/71
[2017-03-28] MEDS: DEXAMETHASONE SOD PHOSPHATE 4 MG/ML VIAL IV SCH ×4 (01:10→17:12)
[2017-03-28] MEDS: BLOOD SUGAR DIAGNOSTIC 1 EACH STRIP IN SCH ×4 (01:11→17:17)
[2017-03-28] MEDS: INSULIN REGULAR, HUMAN 100 UNIT/ML 3 ML VIAL SQ PRN ×3 (01:41→17:19)
[2017-03-28] MEDS: ALBUTEROL FS 2.5 MG/3 ML VIAL.NEB NEB SCH ×4 (02:20→19:13)
[2017-03-28] MEDS: IPRATROPIUM NEB FS 0.5 MG/2.5 ML AMPUL.NEB IH SCH ×4 (02:20→19:13)
[2017-03-28 04:00] VITALS: BP 140/73
[2017-03-28] MEDS: CAPTOPRIL 12.5 MG TABLET GT SCH ×3 (05:16→21:29)
--- NOTE | 2017-03-28 06:34 | NUR ---
MEDICAL OFFICE SPECIALIST NOTES AWAKE & ALERT. NOT IN ANY DISTRESS. NO SOB NOTED. NO S/SX OF PAIN OR DISCOMFORT AT THIS TIME. ON TELE SB @ 50 WITH IV-HL PATENT & INTACT. AM CARE DONE. MONITORED ACCORDINGLY. CALL LIGHT WITHIN REACH. BED IN LOWEST POSITION. SR UP X 3 WITH BED ALARM ON FOR SAFETY.
[2017-03-28 06:40] VITALS: BP 140/63
--- NOTE | 2017-03-28 08:00 | NUR ---
HAZARDOUS SUBSTANCES SCIENTIST NOTES PATIENT NOTED IN BED SLEEPING NO SOB OR ACUTE DISTRESS NOTED. NOTED WITH SINUS BRADYCARDIA MD AWARE. PATIENT WITH BILATERAL SOFT WRIST RESTRAINS. IV INTACT PATENT. VENT SETTINGS NOTED. BED IN LOW LOCKED POSITION. G-TUBE INTACT PATENT. WILL CONTINUE TO MONITOR. LEFT ARM NOTED WITH SWELLING FROM IV INFILTRATION FORM CT CONTRAST FROM 03/27/2017 WILL CONTINUE TO MONITOR.
[2017-03-28] MEDS: DOCUSATE SODIUM LIQ 100 MG/10 ML UDC GT SCH (08:12)
[2017-03-28] MEDS: PANTOPRAZOLE 40 MG/PACK PACK GT SCH (08:12)
[2017-03-28] MEDS: ASPIRIN 81 MG TAB.CHEW GT SCH (08:12)
[2017-03-28] MEDS: MYCOPHENOLATE MOFETIL 250 MG CAPSULE PO SCH ×2 (08:12→21:29)
[2017-03-28] MEDS: ASCORBIC ACID SYRUP 500 MG/5 ML UDC GT SCH (08:12)
[2017-03-28] MEDS: MAGNESIUM HYDROXIDE 30 ML UDC GT SCH (08:12)
[2017-03-28] MEDS: FERROUS SULFATE UDC 300 MG/5 ML UDC GT SCH ×3 (08:13→17:12)
[2017-03-28] MEDS: FIBERSOURCE HN 1,000 ML BOTTLE GT PRN (09:25)
[2017-03-28] MEDS ORDERED: FIBERSOURCE HN 1,000 ML BOTTLE GT PRN (10:00)
[2017-03-28] MEDS: LORAZEPAM 0.5 MG TABLET GT PRN (10:24)
[2017-03-28] MEDS ORDERED: DEXA4TAB2 GT (12:17)
--- NOTE | 2017-03-28 14:00 | NUR ---
MS RN NOTES PATIENT SEEN AND EVALUATED BY DR. DIAZ ORDERS NOTED AND CARRIED OUT.
[2017-03-28 15:30] LABS: ABG BASE EXCESS 6.3 mmol/L; ABG OXYGEN SATURATION 92.8 % (92.0-98.5); ABG PCO2 35.2 mmHg (35.0-45.0); ABG PH 7.535 (7.350-7.450); ABG PO2 66.5 mmHg (75.0-100.0); MetHb 0.7 % (0.0-1.5); O2Hb 91.2 % (94.0-97.0); SITE, ABG Right Radial; VENT MODE, BG AC 20 500 30% +5
[2017-03-28 16:00] VITALS: BP 144/63
[2017-03-28] MEDS ORDERED: EPOETIN ALFA (4000 UNIT) 4,000 UNIT/ML VIAL SQ SCH (16:00)
--- NOTE | 2017-03-28 16:00 | NUR ---
UTILITY PORTER NOTES PATIENT SEEN AND EVALUATED BY DR. RIVERA RESULTS NOTED OF ABG VENT SETTINGS CHANGED BY RT. WILL CONTINUE TO MONITOR.
[2017-03-28 17:30] LABS: HEMOGLOBIN 11.4 g/dL (11.5-14.8)
--- NOTE | 2017-03-28 18:15 | NUR ---
BREAD DISTRIBUTOR NOTES PATIENT IN BED WITH FAMILY AT BEDSIDE NO SOB OR ACUTE DISTRESS NOTED. ALL DUE MEDICATIONS ADMINISTERED. IV INTACT PATENT ON RIGHT FOREARM, VENT SETTINGS NOTED. SCHEDULED TO BE DISCHARGED TO [facility] AT 9PM. WILL ENDORSE CARE TO PM SHIFT.
--- NOTE | 2017-03-28 19:11 | NUR ---
MANAGER STAR NOTES REPORT GIVEN TO EPI RN SWING GRINDER AT [facility].
--- NOTE | 2017-03-28 19:20 | NUR ---
RN OPEN NOTES RECEIVED PATIENT AWAKE IN BED. A/O X2. NO SIGNS OF DISTRESS OR DISCOMFORT. BREATHING EVEN AND UNLABORED. ON MECH VENT WITH SETTINGS ORDERED. ON TELE MONITORING WITH SR 80'S NOTED. IV ACCESS IN RFA PATENT AND INTACT, NO SIGNS OF REDNESS OR INFILTRATION. PATIENT ON BILATERAL SOFT RESTRAINTS. GTUBE WITH FEEDING RUNNING, TOLERATING WELL. BED IN LOW LOCKED POSITION WITH SIDE RAILS X3. CALL LIGHT WITHIN REACH. WILL CONTINUE TO MONITOR.
[2017-03-28 20:00] VITALS: BP 131/69
[2017-03-28 21:29] VITALS: BP 130/71
[2017-03-28] MEDS: MONTELUKAST SODIUM (10MG) 10 MG TABLET GT SCH (21:29)
[2017-03-28] MEDS: ATORVASTATIN 40 MG TABLET GT SCH (21:29)
--- NOTE | 2017-03-28 22:45 | NUR ---
RN CLOSING NOTES PATIENT IN STABLE CONDITION. DISCHARGED TO [facility] VIA EMT FOR YOSELIN. VSS. DISCHARGE INSTRUCTIONS GIVEN. ALL PHOTOS TAKEN. ALL PATIENT BELONGINGS ON GURNEY WITH PATIENT. REPORT WAS GIVEN TO EPI RN PER AM SHIFT.
== END 2017-03-28 22:50 | DRG 70 ==
LOC: ER 15:16 → TELE 19:19 → MED 22:21 → TELE 23:32
PROC: 5A1945Z Respiratory Ventilation, 24-96 Consecutive Hours (ICD-10-PCS; principal; 2017-03-25)
DX: G93.9 Disorder of brain, unspecified (principal); N17.0 Acute kidney failure with tubular necrosis; G93.6 Cerebral edema; Z99.11 Dependence on respirator [ventilator] status; J96.12 Chronic respiratory failure with hypercapnia; J96.11 Chronic respiratory failure with hypoxia; E66.2 Morbid (severe) obesity with alveolar hypoventilation; E11.22 Type 2 diabetes mellitus with diabetic chronic kidney disease; E86.0 Dehydration; Z86.73 Personal history of transient ischemic attack (TIA), and cerebral infarction without residual deficits; Z93.0 Tracheostomy status; R13.10 Dysphagia, unspecified; Z93.1 Gastrostomy status; R53.2 Functional quadriplegia; D64.9 Anemia, unspecified; W06.XXXA Fall from bed, initial encounter; N18.9 Chronic kidney disease, unspecified; Y93.9 Activity, unspecified; Y92.129 Unspecified place in nursing home as the place of occurrence of the external cause; J44.9 Chronic obstructive pulmonary disease, unspecified; Z68.23 Body mass index [BMI] 23.0-23.9, adult; R56.9 Unspecified convulsions; Z79.899 Other long term (current) drug therapy
CPT/HCPCS: 31720; 36415; 36600; 70450-TC; 70460-TC; 70486-TC; 71010-TC; 71270-TC; 72125-TC; 72194-TC; 74170-TC; 80048-TC; 80053-TC; 82378; 82803-TC; 82962-TC; 83615-TC; 85025-TC; 85027-TC; 85730-TC; 86300; 86301; 86304; 86777; 86778; 87040-TC; 87081-TC; 94002-TC; 94003-TC; 94762-TC; 95819-TC; 99082-TC; A4606; A4623; A6403; J0885; J1100; J1815; J7040; J7050; J7517; Q9967; Z7610

== ENCOUNTER 2017-06-18 11:10 | Outpatient (CLI) | payer MEDICARE, MEDICAID ==
[~2017-06-18 11:10] MED LIST changes: -ACET-2605 GT; +DEXA4TAB2 GT; -PIPE3.376 IV
[2017-06-18] MEDS ORDERED: IV NS 0.9% 250 ML IV ONE (11:16)
[2017-06-18] MEDS ORDERED: CT SWABBABLE VALVE TRANS SET 1 EA INFUS.SET MC ONE (11:16)
[2017-06-18] MEDS ORDERED: IOHEXOL-350 100 ML VIAL IV ONE (11:16)
== END 2017-06-18 23:59 | disposition home or self-care (01) ==
LOC: CT 11:10
PROVIDERS: ATTEND Internal Medicine Pulmonary Disease
DX: G93.89 Other specified disorders of brain (principal); Z85.9 Personal history of malignant neoplasm, unspecified
CPT/HCPCS: 70470; J7050; Q9967

== ENCOUNTER 2017-07-03 19:35 | Inpatient (IN) | payer MEDICARE, MEDICAID ==
[~2017-07-03] VITALS: Ht 157.5 cm; Wt 57.2 kg
--- NOTE | 2017-07-03 19:35 | NUR ---
pt bibra fr SNF for report increased AMS w/ lower GI bleed. pt nonverbal on vent AC 14 TV 500 FIO2 40% Peep 5 w/ O2 sat 100% on RA. pt moving all extremities, nonverbal, responds to verbal stimuli w/ resp even & unlabored, no acute distress noted. Dr. Moise at bedside for further eval. COMPARISON SHOPPER at bedside for vent placement.
[2017-07-03 19:50] VITALS: BP 121/63
[2017-07-03 20:16] LABS: CALCIUM, SERUM 8.3 mg/dL (8.5-10.1); CARBON DIOXIDE 39 mmol/L (21-32); CHLORIDE 106 mmol/L (98-107); CREATININE 1.2 mg/dL (0.6-1.3); GLUCOSE 107 mg/dL (74-106); POTASSIUM 4.3 mmol/L (3.5-5.1); SODIUM SERUM 146 mmol/L (136-145); UREA NITROGEN, BLOOD 31 mg/dL (7-18)
[2017-07-03 20:17] LABS: INR 1.21 (0.87-1.13); PROTHROMBIN TIME 12.7 SECS (9.5-12.7)
--- NOTE | 2017-07-03 20:21 | NUR ---
maintenance technician at bedside for BC x2 draw.
--- NOTE | 2017-07-03 20:27 | NUR ---
pt sent to CT via [facility].
[2017-07-03 20:31] LABS: ALANINE AMINOTRANSFERASE 22 U/L (12-78); ALBUMIN 2.6 g/dL (3.4-5.0); ALKALINE PHOSPHATASE 131 U/L (46-116); ASPARTATE AMINOTRANSFERASE 18 U/L (15-37); BILIRUBIN,DIRECT 0.1 mg/dL (0.0-0.2); BILIRUBIN,TOTAL 0.3 mg/dL (0.2-1.0)
[2017-07-03 20:44] LABS: EOSINOPHILS % (AUTO) 0.1 % (0.0-6.0); HEMATOCRIT 26 % (33-45); HEMOGLOBIN 7.9 g/dL (11.5-14.8); LYMPHOCYTES # (AUTO) 0.3 /CMM (0.8-4.8); LYMPHOCYTES % (AUTO) 1.6 % (20.0-44.0); MEAN CORPUSCULAR HEMOGLOBIN 29 PG (26.0-33.0); MEAN CORPUSCULAR HGB CONC 31 g/dl (31.0-36.0); MEAN CORPUSCULAR VOLUME 93 fL (82-100); MONOCYTES # (AUTO) 0.5 /CMM (0.1-1.30); MONOCYTES % (AUTO) 2.9 % (2.0-12.0); NEUTROPHILS # (AUTO) 17.7 /CMM (1.8-8.9); NEUTROPHILS % (AUTO) 95.4 % (43.0-81.0); PLATELET COUNT (AUTO) 507 /CMM (150-450); RDW COEFFICIENT OF VARIATION 17.2 (11.5-15.0); RED BLOOD CELL COUNT(AUTO) 2.79 MIL/uL (4.0-5.2); WHITE BLOOD COUNT (AUTO) 18.6 K/uL (4.3-11.0)
--- NOTE | 2017-07-03 20:45 | NUR ---
pt back fr CT w/ resp even & unlabored, on vent w/ continuous monitoring.
[2017-07-03] MEDS ORDERED: MIRT15TA GT (21:08)
[2017-07-03] MEDS ORDERED: LEVE500T9 GT (21:08)
[2017-07-03] MEDS ORDERED: HYDR-3026 GT (21:08)
[2017-07-03] MEDS ORDERED: ACET-73 GT (21:08)
[2017-07-03] MEDS ORDERED: DEXA4TAB2 GT (21:08)
[2017-07-03] MEDS ORDERED: NITR0.4T6 SL (21:08)
[2017-07-03 21:14] LABS: BAND % (MANUAL) 8 % (0.0-5.0); LYMPHOCYTES % (MANUAL) 2 % (16-48); MONOCYTES % (MANUAL) 2 % (0-11.0); NEUTROPHILS % (MANUAL) 88 (42-76)
[2017-07-03 21:41] LABS: APPEARANCE,URINE Clear (CLEAR); BILIRUBIN,URINE Negative (NEGATIVE); BLOOD, URINE Negative Ery/uL (NEGATIVE); COLOR,URINE Yellow (YELLOW); KETONES,URINE Negative (NEGATIVE); LEUKOCYTE ESTERASE ,URINE Negative (NEGATIVE); NITRITE, URINE Negative (NEGATIVE); PROTEIN,URINE Negative (NEGATIVE); UGLUCOSE Negative (NEGATIVE); UROBILINOGEN,URINE 0.2 EU/dL (0.2)
--- NOTE | 2017-07-03 21:47 | NUR ---
BC x2 drawn prior to IV abx given.
--- NOTE | 2017-07-03 21:48 | NUR ---
CALLED FOR [facility]
--- NOTE | 2017-07-03 21:49 | NUR ---
Dr. Adler called, left message on paging service.
--- NOTE | 2017-07-03 21:54 | NUR ---
DR. BANDAR JUNG.
--- NOTE | 2017-07-03 22:04 | NUR ---
RECEIVED CALL FROM DR. EAST WHOM STATED HE WAS NOT TALENT ACQUISITION ASSISTANT; HE ASKED THAT WE CALL THE OTHER GI ON THE SCHEDULE. DR. DANIEL CALLED; LEFT MESSAGE.
--- NOTE | 2017-07-03 22:33 | NUR ---
ASSIGNED [facility] BED 116
--- NOTE | 2017-07-03 22:43 | NUR ---
Report given to JERROD Medrano for pt admission to [facility] 116-2. CONTACT AGENT called for pt transport via ALS protocol to [facility] unit.
[2017-07-03 22:55] VITALS: BP 120/77
--- NOTE | 2017-07-03 22:55 | NUR ---
[facility] RN ADMITTING NOTES PATIENT ARRIVED ON UNIT VIA GURNEY TO ROOM 116-2. REPORT RECEIVED FROM JOELLEN JASON RN. PATIENT A/A/O X1 W/ SOME CONFUSION. BREATHING EVEN AND UNLABORED, NO SOB OR RESPIRATORY DISTRESS NOTED. TRACH INTACT W/ VENT SETTINGS AC 14, TV 500, FIO2 40%, PEEP 5 AND PORTEX 8. ON TELE SINUS RHYTHM, PULSES PRESENT. SKIN COOL TO TOUCH, PICTURES TAKEN FOR SKIN ISSUES. BILATERAL SOFT WRIST RESTRAINTS APPLIED D/T PATIENT TRYING TO PULL TRACH AND IV LINES. RIGHT AC IV SITES #20 INTACT W/ DRESSINGS CDI. G-TUBE INTACT AND PATENT, CLAMPED D/T NPO STATUS. ALL ADMITTING ORDERS VERIFIED AND CARRIED OUT. SAFETY MEASURES IN PLACE W/ SIDE RAILS UP, BED LOCKED IN LOWEST POSITION, CALL LIGHT WITHIN REACH. WILL CONTINUE TO MONITOR.
[2017-07-03 23:30] VITALS: BP 120/77
[2017-07-04] VITALS (7 sets, daily range): BP systolic 94–143; BP diastolic 52–77
--- NOTE | 2017-07-04 | NUR ---
[facility] RN NOTES RECEIVED ABNORMAL ABG RESULTS AND RELAYED TO DR PORTILLO. PER DR PORTILLO, ASK RT TO ADJUST SETTINGS AND REPEAT ABG. PATIENT NOT IN APPARENT RESPIRATORY DISTRESS. WILL CONTINUE TO MONITOR.
[2017-07-04 00:47] LABS: ABG BASE EXCESS 8.2 mmol/L; ABG OXYGEN SATURATION 97.4 % (92.0-98.5); ABG PCO2 79.2 mmHg (35.0-45.0); ABG PH 7.278 (7.350-7.450); ABG PO2 128.9 mmHg (75.0-100.0); AaDO2 65.2 mmHg; COHb 1.1 % (0.5-1.5); MetHb 0.9 % (0.0-1.5); O2Hb 95.5 % (94.0-97.0); PEEP,BG 5 cm H2O; SITE, ABG Left Radial; VT, ABG 500 mL
--- NOTE | 2017-07-04 01:30 | NUR ---
[facility] RN NOTES REPEAT ABG TAKEN AFTER NEWLY ADJUSTED SETTINGS.
--- NOTE | 2017-07-04 02:00 | NUR ---
[facility] RN NOTES REPEAT ABG RESULTS RECEIVED AND SHOWED IMPROVEMENT. PER RT, WILL CONTINUE W/ NEW SETTINGS AC 20, TV 450, FIO2 40%, PEEP 5.
--- NOTE | 2017-07-04 03:00 | NUR ---
[facility] RN NOTES RECEIVED CALL FROM LAB FOR TYPE AND SCREEN RESULTS. PATIENT POSITIVE FOR ANTIBODIES AND WILL HAVE TO WAIT FOR PRBC TO BE DELIVERED BY [facility]. CONSENT ALREADY SIGNED VIA TELEPHONE CONSENT FROM PATIENT'S DAUGHTER. WILL CONTINUE TO MONITOR AND FOLLOW UP.
--- NOTE | 2017-07-04 07:10 | NUR ---
[facility] RN CLOSING NOTES PATIENT ASLEEP IN BED. NO ACUTE RESPIRATORY DISTRESS NOTED. TOLERATING VENT SETTINGS WELL. 1 UNIT PRBC STILL NOT AVAILABLE TO BE TRANSFUSED. WILL ENDORSE YOSELIN TO AM RN.
--- NOTE | 2017-07-04 07:10 | NUR ---
[facility] INITIAL NOTE RECEIVED PT IN BED, AWAKE, A/O X SELF, ABLE TO MAKE NEEDS KNOWN, ABLE TO FOLLOW COMMANDS, PT IS ON [facility] VENT PORTEX #8 AC 20 TV 450 FIO2 40% PEEP 5, SATING WELL, NO S/S OF RESP. DISTRESS OR SOB NOTED AT THIS TIME, PT IS ON TELE MONITOR SHOWING ST @ 101 BPM, NO C/O OF CHEST PAIN OR DISCOMFORT AT THIS TIME, PT HAS MULTIPLE SKIN ISSUES NOTED, GENERALIZED RASH ALL OVER BODY, TREATMENTS CARRIED OUT, PT HAS LAC #20G,RUNNING D5NS @75ML/HR, C/D/I/PATENT, FLUSHING WELL, NO S/S OF INFECTION/ INFILTRATION NOTED AT THIS TIME, GTUBE CLAMPED AT THIS TIME, PT IS NOTED WITH RECTAL BLEEDING, OB STOOL SAMPLE WAS COLLECTED, ALL SAFETY MEASURES IN PLACE AT ALL TIMES, CALL LIGHT WITHIN EASY REACH, ALL NEEDS MET, WILL MONITOR PT CLOSELY FOR CHANGES
[2017-07-04 07:46] LABS: BASOPHILS # (AUTO) 0.1 /CMM (0.0-0.2); BASOPHILS % (AUTO) 0.3 % (0.0-2.0); EOSINOPHILS # (AUTO) 0.6 /CMM (0.0-0.7); EOSINOPHILS % (AUTO) 3.3 % (0.0-6.0); HEMATOCRIT 21 % (33-45); LYMPHOCYTES # (AUTO) 0.5 /CMM (0.8-4.8); MEAN CORPUSCULAR HEMOGLOBIN 29 PG (26.0-33.0); MEAN CORPUSCULAR HGB CONC 31 g/dl (31.0-36.0); MEAN CORPUSCULAR VOLUME 93 fL (82-100); MONOCYTES # (AUTO) 1.1 /CMM (0.1-1.30); MONOCYTES % (AUTO) 6.5 % (2.0-12.0); NEUTROPHILS # (AUTO) 15.1 /CMM (1.8-8.9); NEUTROPHILS % (AUTO) 86.9 % (43.0-81.0); PLATELET COUNT (AUTO) 497 /CMM (150-450); RDW COEFFICIENT OF VARIATION 17.8 (11.5-15.0); RED BLOOD CELL COUNT(AUTO) 2.28 MIL/uL (4.0-5.2); WHITE BLOOD COUNT (AUTO) 17.4 K/uL (4.3-11.0)
[2017-07-04] MEDS ORDERED: LEVE100S GT (07:47)
[2017-07-04 07:55] LABS: ALANINE AMINOTRANSFERASE 22 U/L (12-78); ALBUMIN 2.4 g/dL (3.4-5.0); ALKALINE PHOSPHATASE 114 U/L (46-116); ASPARTATE AMINOTRANSFERASE 16 U/L (15-37); BILIRUBIN,TOTAL 0.3 mg/dL (0.2-1.0); CALCIUM, SERUM 7.7 mg/dL (8.5-10.1); CARBON DIOXIDE 34 mmol/L (21-32); CHLORIDE 111 mmol/L (98-107); CREATININE 1.2 mg/dL (0.6-1.3); GLUCOSE 142 mg/dL (74-106); POTASSIUM 4.3 mmol/L (3.5-5.1); SODIUM SERUM 150 mmol/L (136-145); TOTAL PROTEIN, SERUM 6.6 g/dL (6.4-8.2); UREA NITROGEN, BLOOD 28 mg/dL (7-18)
[2017-07-04 08:01] LABS: HEMOGLOBIN 6.5 g/dL (11.5-14.8)
[2017-07-04 08:03] LABS: CREATINE KINASE MB 5.2 ng/mL (0-3.6)
[2017-07-04 08:07] LABS: INR 1.04 (0.87-1.13); PROTHROMBIN TIME 11.1 SECS (9.5-12.7)
--- NOTE | 2017-07-04 08:47 | NUR ---
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 ALL SKIN PROTECTION AND WOUND RECOMMENDATIONS DISCUSSED WITH NURSING STAFF. RECOMMEND SURGICAL CONSULT. PT NOTED TO BE SCRATCHING AT HER SKIN AND ALSO NOTED TO MOVE HER LEGS FREQUENTLY. PT ON EVAN ISOFLEX LOW AIRLOSS BED. ALL SKIN PROTECTION MEASURES IN PLACE. WILL SEE PRN. ANDRE IN AGREEMENT WITH PLAN OF CARE. Addendum: 07/04/17 at 0849 by PILAR CALVILLO WNDNU Amended: Links added.
[2017-07-04 08:56] LABS: BAND % (MANUAL) 1 % (0.0-5.0); EOSINOPHILS % (MANUAL) 2 % (0-4); LYMPHOCYTES % (MANUAL) 2 % (16-48); MONOCYTES % (MANUAL) 9 % (0-11.0); NEUTROPHILS % (MANUAL) 86 (42-76)
--- NOTE | 2017-07-04 12:10 | NUR ---
tristin note lab called and informed me that pt has positive antibodies, getting blood from different facility, will call when blood is available. md khan
--- NOTE | 2017-07-04 14:44 | NUR ---
tristin note informed dr. dickson regarding new consult.
--- NOTE | 2017-07-04 20:00 | NUR ---
tristin rn notes received pts on bed awake and responsive , on vent dependent ac setting well tolerated , hob elevated for aspiration precaution , on tele sr on the monitor , v/s stable afebrile , remains npo status . all needs attended too , call light within reach due meds given as ordered, with ivf on d5ns at 75cc/hr infusing well. Turned and reposition q 2hrs and prn , will continue to monitor pts.kept pts clean dry and comfortable , still awaiting for prbc from labs d/t blood has anti bodies , labs will inform us if blood is available, will flu .
[2017-07-05] VITALS (16 sets, daily range): BP systolic 81–154; BP diastolic 50–90
--- NOTE | 2017-07-05 02:00 | NUR ---
[facility] RN NOTES SPOKE TO BLOOD BANK RE STATUS OF BLOOD. PER TECH, BLOOD IS STILL NOT READY, WILL INFORM ME WHEN IT IS.
--- NOTE | 2017-07-05 04:00 | NUR ---
[facility] RN NOTES STILL NOTED WITH BLOOD IN THE STOOL IN MODERATE AMT , STILL AWAITING FOR BLOOD PRBC.
--- NOTE | 2017-07-05 05:50 | NUR ---
[facility] RN NOTES RECEIVED A CALL FROM BLOOD BANK SPOKE TO RONALD , SAYING BLOOD IS READY.
--- NOTE | 2017-07-05 06:12 | NUR ---
[facility] RN NOTES PRBC VERIFIED , AND CHECKED WITH CHARGE NURSE ELISEO , BLOOD STARTED AT 0612AM WITH NO ASE NOTED , V/S STABLE AFEBRILE , WILL CONTINUE TO MONITOR PTS.
--- NOTE | 2017-07-05 06:47 | NUR ---
[facility] RN NOTES PTS NOTED PULLING INVASIVE TUBING, SPOKE TO DR PORTILLO WITH ORDER BILATERAL SOFT WRIST RESTRAINT TO PREVENT PULLING INVASIVE TUBING.WILL ENDORSE TO RN DAY SHIFT SHIFT FOR CONTINUITY OF CARE , V/S STABLE AFEBRILE , ENDORSE TO RN DAY SHIFT TOTAL UNIT OF BLOOD TO BE GIVEN IS 2 UNITS.
[2017-07-05 07:10] LABS: BASOPHILS % (AUTO) 0.2 % (0.0-2.0); EOSINOPHILS # (AUTO) 0.4 /CMM (0.0-0.7); EOSINOPHILS % (AUTO) 2.9 % (0.0-6.0); LYMPHOCYTES # (AUTO) 0.9 /CMM (0.8-4.8); LYMPHOCYTES % (AUTO) 5.4 % (20.0-44.0); MEAN CORPUSCULAR HEMOGLOBIN 28 PG (26.0-33.0); MEAN CORPUSCULAR HGB CONC 30 g/dl (31.0-36.0); MEAN CORPUSCULAR VOLUME 93 fL (82-100); MONOCYTES # (AUTO) 0.8 /CMM (0.1-1.30); NEUTROPHILS # (AUTO) 13.6 /CMM (1.8-8.9); NEUTROPHILS % (AUTO) 86.5 % (43.0-81.0); PLATELET COUNT (AUTO) 448 /CMM (150-450); RDW COEFFICIENT OF VARIATION 17.4 (11.5-15.0); RED BLOOD CELL COUNT(AUTO) 2.04 MIL/uL (4.0-5.2); WHITE BLOOD COUNT (AUTO) 15.7 K/uL (4.3-11.0)
[2017-07-05 07:36] LABS: CALCIUM, SERUM 7.9 mg/dL (8.5-10.1); CARBON DIOXIDE 30 mmol/L (21-32); CHLORIDE 113 mmol/L (98-107); CREATININE 1.4 mg/dL (0.6-1.3); GLUCOSE 143 mg/dL (74-106); MAGNESIUM 1.9 mg/dL (1.8-2.4); PHOSPHORUS 3.4 mg/dL (2.5-4.9); POTASSIUM 3.9 mmol/L (3.5-5.1); SODIUM SERUM 151 mmol/L (136-145); UREA NITROGEN, BLOOD 28 mg/dL (7-18)
[2017-07-05 07:51] LABS: HEMATOCRIT 19 % (33-45); HEMOGLOBIN 5.7 g/dL (11.5-14.8)
--- NOTE | 2017-07-05 12:54 | NUR ---
RN NOTE DAUGHTER DEMI AT BED SIDE SIGNED CONSENT FOR COLONOSCOPY AFTER PROCEDURE WAS EXPLAINED TO HER- VERBALIZED UNDERSTANDING. PATIENT CURRENTLY RECEIVING 2ND UNIT OF BLOOD. NO S/S OF ADVERSE REACTION.
[2017-07-05 13:49] LABS: BAND % (MANUAL) 2 % (0.0-5.0); EOSINOPHILS % (MANUAL) 4 % (0-4); LYMPHOCYTES % (MANUAL) 5 % (16-48); MONOCYTES % (MANUAL) 7 % (0-11.0); NEUTROPHILS % (MANUAL) 82 (42-76)
--- NOTE | 2017-07-05 19:12 | NUR ---
end of shift resting in bed comfortably. continues to have light brown/ red liquid stool- approximately 1liter remaining- will inform shift mechanic nurse. patient denies pain at this time. restraints loosened when possible, provided comfort measures. no complications with invasive sites. call light in reach
--- NOTE | 2017-07-05 19:30 | NUR ---
[facility] RN INITIAL NOTE PT RECEIVED IN BED SLEEPING. A/O X1 ROMANSH SPEAKING WITH NOTED CONFUSION. ON MECH VENT WITH SETTINGS WELL TOLERATED AND SATURATING WELL. TELE- SINUS TACH 104. BILATERAL SOFT WRIST RESTRAINTS IN PLACE. NO DISCOLORATION ON WRISTS NOTED, CAP REFILL 3 SECONDS AND CIRCULATION CHECKED. IV SITE MERCEDES MIDLINE AND LAC IN PLACE, PATENT, CLEAN AND FLUSHING WELL. IV FLUIDS RUNNING THROUGH MERCEDES MIDLINE. NPO STATUS MAINTAINED. GTUBE IN PLACE AND CLAMPED. GTUBE SITE CLEAN AND FLUSHING WELL. CALL LIGHT WITHIN REACH AT ALL TIMES. WILL CONTINUE TO MONITOR.
--- NOTE | 2017-07-05 23:30 | NUR ---
[facility] RN NOTE SPOKE WITH DR DANIEL REGARDING COLONOSCOPY FOR TOMORROW Friday07/06/17. INFORMED DR THAT PT STILL HAVING YELLOW TO LIGHT BROWN STOOL AND NOT CLEAR YET. WITH NEW ORDER TO START ON CLEAR LIQUIDS VIA GTUBE AND START NPO AT MIDNIGHT FRIDAY NIGHT FOR COLONOSCOPY ON FRIDAY AFTERNOON. NEW ORDER TO START GOLYTELY 11AM Friday. ORDERS NOTED AND CARRIED. WILL CONTINUE TO MONITOR.
[2017-07-06] VITALS: BP 141/99
[2017-07-06 04:00] VITALS: BP 152/97
[2017-07-06 06:29] LABS: BASOPHILS % (AUTO) 0.3 % (0.0-2.0); EOSINOPHILS # (AUTO) 0.4 /CMM (0.0-0.7); EOSINOPHILS % (AUTO) 2.6 % (0.0-6.0); HEMATOCRIT 30 % (33-45); HEMOGLOBIN 9.6 g/dL (11.5-14.8); LYMPHOCYTES # (AUTO) 0.7 /CMM (0.8-4.8); LYMPHOCYTES % (AUTO) 4.3 % (20.0-44.0); MEAN CORPUSCULAR HEMOGLOBIN 30 PG (26.0-33.0); MEAN CORPUSCULAR HGB CONC 32 g/dl (31.0-36.0); MEAN CORPUSCULAR VOLUME 92 fL (82-100); MONOCYTES # (AUTO) 1.2 /CMM (0.1-1.30); MONOCYTES % (AUTO) 7.2 % (2.0-12.0); NEUTROPHILS # (AUTO) 14.4 /CMM (1.8-8.9); NEUTROPHILS % (AUTO) 85.6 % (43.0-81.0); PLATELET COUNT (AUTO) 406 /CMM (150-450); RDW COEFFICIENT OF VARIATION 17.4 (11.5-15.0); RED BLOOD CELL COUNT(AUTO) 3.24 MIL/uL (4.0-5.2); WHITE BLOOD COUNT (AUTO) 16.9 K/uL (4.3-11.0)
--- NOTE | 2017-07-06 06:40 | NUR ---
[facility] RN CLOSING NOTE PT REMAINED STABLE DURING SHIFT. MECH VENT WELL TOLERATED. IV SITES IN PLACE AND CLEAN. GTUBE FLUSHING WELL AND ON CLEAR LIQUIDS WELL TOLERATED. BLOOD SUGAR 154 DL/MG. BILATERAL SOFT WRIST RESTRAINTS ON AND NO DISCOLORATION NOTED. REPOSITIONED Q2H AND TREATMENT PERFORMED. NO BLOODY STOOLS NOTED AT THIS TIME. SUCTIONED NEEDED. ALL DUE MEDS GIVEN ORDERED AND WELL TOLERATED. KEPT CLEAN AND DRY. ASPIRATION PRECAUTIONS OBSERVED. CALL LIGHT WITHIN REACH. WILL ENDORSE TO NEXT SHIFT FOR CONTINUITY OF CARE.
[2017-07-06 06:55] LABS: CALCIUM, SERUM 8.4 mg/dL (8.5-10.1); CARBON DIOXIDE 29 mmol/L (21-32); CHLORIDE 115 mmol/L (98-107); CREATININE 1.6 mg/dL (0.6-1.3); GLUCOSE 166 mg/dL (74-106); POTASSIUM 3.3 mmol/L (3.5-5.1); SODIUM SERUM 153 mmol/L (136-145); UREA NITROGEN, BLOOD 27 mg/dL (7-18)
[2017-07-06 08:00] VITALS: BP_SYST 141; BP_SYST 157; BP_DIAS 48; BP_DIAS 94
--- NOTE | 2017-07-06 08:00 | NUR ---
TD/RN AM SHIFT INITIAL NOTES RECEIVED PT AWAKE IN BED, NO ACUTE CHANGE OF CONDITION OR FEVER NOTED. PT A/O X 1, NO GRIMACING. VENTILATOR DEPENDENT RATES SET PRESCRIBED, SATURATING @ 100%, LUNG SOUNDS CLEAR, SUCTIONED FOR AIRWAY CLEARANCE. ON TELE MONITORING WITH SINUS RHYTHM, HR 77. ON GOING IV INFUSION OF D5NS @ 75CC/HR, MIDLINE PATENT WITH NO S/S OF INFECTION. PT WILL START BOWEL PREP TODAY FOR A SCHEDULED COLONOSCOPY ON FRIDAY, GT FEEDING HELD. PT IS COMFORTABLE. SCHEDULED AM MEDS TO BE GIVEN. CL WITHIN REACHED AND SAFETY MAINTAINED. ON GOING MONITORING.
[2017-07-06 12:00] VITALS: BP 160/89
--- NOTE | 2017-07-06 12:00 | NUR ---
TD/RN NOON ROUNDS BOWEL PREP HAS STARTED. NO ACUTE CHANGE OF CONDITION. ON GOING MONITORING.
[2017-07-06 16:00] VITALS: BP_SYST 145; BP_SYST 151; BP_DIAS 44; BP_DIAS 83
--- NOTE | 2017-07-06 16:30 | NUR ---
TD/RN AFTERNOON ROUNDS PM CARE PROVIDED. PT SUCTIONED AND REPOSITIONED. BOWEL NOTED GREENISH CLEAR YELLOW. NO ACUTE CHANGE OF CONDITION. MONITORING CONTINUED.
--- NOTE | 2017-07-06 19:24 | NUR ---
TD/RN AM SHIFT END NOTES NO ACUTE CHANGE OF CONDITION NOTED DURING THE SHIFT. ALL NEEDS MET. PT ENDORSED TO PM NURSE TO CONTINUE CARE, ALSO ENDORSED TO CONTINUE BOWEL PREP. CL WITHIN REACHED AND SAFETY MAINTAINED.
--- NOTE | 2017-07-06 19:30 | NUR ---
[facility] RN INITIAL NOTE RECEIVED PT AWAKE IN BED. A/O X1 AUSTRALIAN WITH NOTED CONFUSION AND RESTLESSNESS. ON MECH VENT WITH SETTINGS WELL TOLERATED AND SATURATING 100%. NOTED WITH BILATERAL SOFT WRIST RESTRAINTS WITH NO DISCOLORATION, CAP REFILL CHECKED AND CIRCULATION CHECKED UPON ASSESSMENT. TELE- SINUS RHYTHM 60'S. IV MERCEDES MIDLINE INTACT, PATENT AND WITH FLUIDS RUNNING AT THIS TIME. GTUBE CLAMPED AT THIS TIME WITH CLEAR LIQUIDS AND GOLYTELY ADMINISTERED. PT WILL BE NPO MIDNIGHT FOR PROCEDURE TOMORROW FRIDAY. BED IN LOWEST POSITION, LOCKED IN PLACE WITH BED ALARM ON. CALL LIGHT WITHIN REACH. WILL CONTINUE TO MONITOR.
[2017-07-06 20:00] VITALS: BP 154/79
[2017-07-07] VITALS: BP 135/77
[2017-07-07 04:00] VITALS: BP 138/70
--- NOTE | 2017-07-07 06:33 | NUR ---
[facility] RN CLOSING NOTE PT REMAINED STABLE DURING SHIFT. NO ACUTE DISTRESS NOTED. PT NOTED SCRATCHING BODY AND BENADRYL GIVEN FOR COMFORT. REPOSITIONED Q2H. VENT SETTINGS WELL TOLERATED. KEPT CLEAN AND DRY AT ALL TIMES. NPO STATUS MAINTAINED. IV SITE INTACT WITH D5NS @75MLS/HR. GTUBE IN PLACE, FLUSHING WELL AND CLEAN. BILATERAL SOFT WRIST RESTRAINTS IN PLACE AND CIRCULATION CHECKED. CALL LIGHT WITHIN REACH. WILL ENDORSE TO NEXT SHIFT FOR CONTINUITY OF CARE.
[2017-07-07 07:05] LABS: BASOPHILS # (AUTO) 0.1 /CMM (0.0-0.2); BASOPHILS % (AUTO) 0.6 % (0.0-2.0); EOSINOPHILS # (AUTO) 1.3 /CMM (0.0-0.7); EOSINOPHILS % (AUTO) 13.9 % (0.0-6.0); HEMATOCRIT 26 % (33-45); HEMOGLOBIN 8.6 g/dL (11.5-14.8); LYMPHOCYTES # (AUTO) 0.5 /CMM (0.8-4.8); MEAN CORPUSCULAR HEMOGLOBIN 30 PG (26.0-33.0); MEAN CORPUSCULAR HGB CONC 33 g/dl (31.0-36.0); MEAN CORPUSCULAR VOLUME 91 fL (82-100); MONOCYTES # (AUTO) 0.6 /CMM (0.1-1.30); MONOCYTES % (AUTO) 6.8 % (2.0-12.0); NEUTROPHILS # (AUTO) 7.1 /CMM (1.8-8.9); NEUTROPHILS % (AUTO) 73.7 % (43.0-81.0); PLATELET COUNT (AUTO) 335 /CMM (150-450); RDW COEFFICIENT OF VARIATION 17.6 (11.5-15.0); RED BLOOD CELL COUNT(AUTO) 2.84 MIL/uL (4.0-5.2); WHITE BLOOD COUNT (AUTO) 9.6 K/uL (4.3-11.0)
[2017-07-07 07:14] LABS: CALCIUM, SERUM 8.1 mg/dL (8.5-10.1); CARBON DIOXIDE 27 mmol/L (21-32); CHLORIDE 117 mmol/L (98-107); CREATININE 1.2 mg/dL (0.6-1.3); GLUCOSE 128 mg/dL (74-106); POTASSIUM 2.9 mmol/L (3.5-5.1); SODIUM SERUM 154 mmol/L (136-145); UREA NITROGEN, BLOOD 19 mg/dL (7-18)
--- NOTE | 2017-07-07 07:15 | NUR ---
RN INITIAL NOTES RECEIVED PT AWAKE, A/OX1. TRACH IN PLACE. ON [facility] VENT WITH FF SETTINGS: AC18,TV550, [id number]%, PEEP +5. NO RESPIRATORY DISTRESS NOTED. NO SOB NOTED. HOB ELEVATED. NO SIGNS OF PAIN NOTED. MERCEDES MIDLINE AND LAC #[address] TOLERATING D5NS AT 75ML/HR. BLE ELEVATED. CALL LIGHT WITHIN REACH. FOR COLONOSCOPY TODAY. WILL CONTINUE TO MONITOR.
[2017-07-07 08:00] VITALS: BP 127/76
[2017-07-07 12:00] VITALS: BP 135/83
[2017-07-07 12:31] LABS: ABG BASE EXCESS 1.3 mmol/L; ABG PCO2 47.6 mmHg (35.0-45.0); ABG PH 7.371 (7.350-7.450); ABG PO2 113.7 mmHg (75.0-100.0); AaDO2 80.5 mmHg; COHb 0.3 % (0.5-1.5); MetHb 0.7 % (0.0-1.5); PEEP,BG 5 cm H2O; SITE, ABG Right Brachial; VT, ABG 550 mL
--- NOTE | 2017-07-07 13:00 | NUR ---
RN NOTES SEEN AND EXAMINED BY MATTEO KINGSLEY NP. AWARE OF CURRENT LAB VALUES: WBC 9.6, HGB 8.6, HCT 26, PLATELET 335. PT ON EPOGEN. SODIUM 154, POTASSIUM 2.9, CHLORIDE 117, C02 27, BUN 19, CREA 1.2. ON IVF D5NS AT 75ML/HR. PT ON NPO. FOR COLONOSCOPY WITH DR. DANIEL. PER BROOD HATCHERY MANAGER, RESUME GTF AND ORDER H2O FLUSH AT 150ML Q6 ONCE COLONOSCOPY IS DONE. WILL CLOSELY MONITOR.
[2017-07-07 16:00] VITALS: BP_SYST 133; BP_SYST 138; BP_DIAS 55; BP_DIAS 81
--- NOTE | 2017-07-07 18:43 | NUR ---
RN CLOSING NOTES PT REMAINS STABLE. [facility]. TRACH IN PL[facility]. NO SOB NOTED. NO SIGNS OF PAIN NOTED. KEPT HOB ELEVATED. GT CLAMPED. REMAINS ON NPO. FOR COLONOSCOPY. TX PROVIDED ORDERED. KEPT CLEAN AND DRY. REPOSITIONED Q2. BLE ELEVATED. CALL LIGHT WITHIN REACH. WILL ENDORSE FOR CONTINUITY OF CARE.
--- NOTE | 2017-07-07 19:30 | NUR ---
[facility] RN INITIAL NOTE RECEIVED REPORT FROM ABNER ELDER. PT IN BED. AWAKE. CHRONIC VENT TRACH, TOLERATING CURRENT VENT SETTINGS. LUNG SOUNDS RHONCHI. BOWEL SOUNDS PRESENT. GT PATENT AND CLAMPED. AWAITING COLONOSCOPY BY DR DANIEL. PULSES PRESENT. GENERALIZED RASH NOTED ON LEGS AND BACK. PT RESTRAINED WITH BILATERAL SOFT WRIST RESTRAINTS. PT CURRENTLY THROWING LEGS OVER BED RAIL. REPOSITIONED BUT REMAINS RESTLESS. BED IN LOW LOCKED POSITION. WILL CONTINUE TO MONITOR.
[2017-07-07 20:00] VITALS: BP 136/83
--- NOTE | 2017-07-07 21:30 | NUR ---
[facility] RN GENERALIZED RASH NOTED ON LEGS, ARMS, TORSO, BACK AND HANDS. BED BATH PROVIDED AND REPOSITIONED FOR COMFORT. 2139- DR PORTILLO CALLED DUE TO RASH. SUSPECT SCABIES. ISOLATE PATIENT AND APPLY ELIMITE FOR TREATMENT. 2199- DR PORTILLO RETURNED CALL AND ORDERS RECEIVED. WILL CARRY OUT. WILL CONTINUE TO MONITOR.
[2017-07-08] VITALS: BP 109/68
[2017-07-08 04:00] VITALS: BP 112/71
[2017-07-08 07:14] LABS: EOSINOPHILS # (AUTO) 1.7 /CMM (0.0-0.7); EOSINOPHILS % (AUTO) 14.6 % (0.0-6.0); HEMATOCRIT 28 % (33-45); HEMOGLOBIN 8.8 g/dL (11.5-14.8); LYMPHOCYTES # (AUTO) 0.8 /CMM (0.8-4.8); LYMPHOCYTES % (AUTO) 6.6 % (20.0-44.0); MEAN CORPUSCULAR HEMOGLOBIN 30 PG (26.0-33.0); MEAN CORPUSCULAR HGB CONC 32 g/dl (31.0-36.0); MEAN CORPUSCULAR VOLUME 92 fL (82-100); MONOCYTES # (AUTO) 0.9 /CMM (0.1-1.30); MONOCYTES % (AUTO) 7.8 % (2.0-12.0); NEUTROPHILS # (AUTO) 8.3 /CMM (1.8-8.9); PLATELET COUNT (AUTO) 291 /CMM (150-450); RDW COEFFICIENT OF VARIATION 17.9 (11.5-15.0); RED BLOOD CELL COUNT(AUTO) 2.99 MIL/uL (4.0-5.2); WHITE BLOOD COUNT (AUTO) 11.7 K/uL (4.3-11.0)
--- NOTE | 2017-07-08 07:35 | NUR ---
D[facility] RNNOTE RECEIVED PT AWAKE IN BED. A/O X1 with CONFUSION AND RESTLESSNESS. ON MECH VENT WITH SETTINGS WELL TOLERATED AND SATURATING 100%. AMBU BAG AT HOB AT ALL TIME ,WITH BILATERAL SOFT WRIST RESTRAINTS FOR PATIENT SAFETY ,CAPILLARY CHECKED AND CIRCULATION CHECKED TELE- SINUS RHYTHM 74. IV MERCEDES MIDLINE INTACT, PATENT AND WITH FLUIDS RUNNING AT THIS TIME. GTUBE CLAMPED AT THIS TIME PT WILL BE NPO MIDNIGHT FOR PROCEDURE COLONOSCOPY BED IN LOWEST AND LOCKED POSITION, WILL CONT TO MONITOR CLOSELY . ON IVF ORDERED
[2017-07-08 08:00] VITALS: BP 114/80
[2017-07-08 08:03] LABS: CALCIUM, SERUM 8.2 mg/dL (8.5-10.1); CARBON DIOXIDE 23 mmol/L (21-32); CHLORIDE 120 mmol/L (98-107); CREATININE 1.3 mg/dL (0.6-1.3); GLUCOSE 110 mg/dL (74-106); MAGNESIUM 1.6 mg/dL (1.8-2.4); SODIUM SERUM 155 mmol/L (136-145); UREA NITROGEN, BLOOD 15 mg/dL (7-18)
--- NOTE | 2017-07-08 08:30 | NUR ---
[facility] RN NOTE CALLED TO DR DANIEL OFFICE BUT NO ANSWER SERVICE AT THIS TIME
--- NOTE | 2017-07-08 09:14 | NUR ---
[facility] RN NOTE \ CALLED TO DR DANIEL SPOKE ABOUT COLONOSCOPY ,STATED CALL ME LATTER ON IN 20 MIN AND HE WILL TELL ME WHEN PROCEDURE WILL BE DONE .WILL F\U
--- NOTE | 2017-07-08 10:16 | NUR ---
SOIL ENGINEER NOTE SPOKE WITH DR LEYVA GI DOCTOR ABOUT COLONOSCOPY , STATED WILL SCHEDULE TO DO PROCEDURE TOMORROW AND WILL CALL TO OR TO SET UP TIME
[2017-07-08 12:00] VITALS: BP 140/75
--- NOTE | 2017-07-08 12:17 | NUR ---
TELE RNNNOTE BLOOD SUGAR 116 MG\ DL NO COVERAGE NEEDED
--- NOTE | 2017-07-08 15:16 | NUR ---
COATER SLATE NNOTE WITH SEVERE AGITATION, ATIVAN VIA G TUBE GIVEN ALSO NOTIFIED MATTEO THAT RT ARM SWOLLEN KEEP ELEVATED ON PILLOW AT ALL TIME , NO NEW ORDER GIVEN AT THIS TIME .ALSO OK TO GIVE MEDS AND CONT TO FLUSH G TUBE WITH 150 ML Q6 HOUR NPO AFTER MID MIGHT.ND CONT FLUSH G TUBE AFTER COLONOSCOPY
[2017-07-08 16:00] VITALS: BP 126/69
--- NOTE | 2017-07-08 19:30 | NUR ---
RN INITIAL NOTE RECEIVED REPORT FROM JEREMIAH ELDER. PATIENT IN BED, AWAKE, CHRONIC VENT TRACH, TOLERATING CURRENT VENT SETTINGS. LUNG SOUNDS RHONCHI. BOWEL SOUNDS PRESENT. GT PATENT, CLAMPED AT THIS TIME. AWAITING COLONOSCOPY BY DR DANIEL, SCHEDULED FOR 07/09/17 @ 0900, CONSENTS OBTAINED BY DAY SHIFT NURSE, LOCATED IN CHART. ON TELEMETRY MONITORING, REVEALING SINUS RHYTHM, HR = 80 AT THIS TIME, PULSES PRESENT. GENERALIZED RASH NOTED ON LEGS AND BACK, S/P ELIMITE TREATMENT. PATIENT NOTED WITH BILATERAL SOFT WRIST RESTRAINTS FOR SAFETY DUE TO PULLING OF MEDICALLY NECESSARY DEVICES. REPOSITIONED BUT REMAINS RESTLESS. BED IN LOWEST AND LOCKED POSITION. WILL CONTINUE TO MONITOR CLOSELY
[2017-07-08 20:00] VITALS: BP 132/81
[2017-07-09] VITALS (8 sets, daily range): BP systolic 111–148; BP diastolic 58–94
--- NOTE | 2017-07-09 | NUR ---
RN NOTES PATIENT SCHEDULED FOR COLONOSCOPY @ 0900. NPO/GT CLAMPED. WILL CONTINUE TO CLOSELY MONITOR
--- NOTE | 2017-07-09 04:00 | NUR ---
RN NOTES PATIENT NOTED TO HAVE LOW TEMP, UNABLE TO READ AXILLARY TEMP. RECTAL TEMP CHECKED, 95.1 DEGREES. WATER TAXI OPERATOR NOTIFIED REGARDING NEED FOR ERIK HUGGER. WILL APPLY ERIK HUGGER WHEN DELIVERED/AVAILABLE.
--- NOTE | 2017-07-09 04:30 | NUR ---
RN NOTED PATIENT BATHED, NOTED WITH BM, YELLOW COLORED, CLEAR CONSISTENCY. ERIK HUGGER APPLIED TO PATIENT, WILL MONITOR CLOSELY
--- NOTE | 2017-07-09 06:35 | NUR ---
RN CLOSING NOTES PATIENT IN BED, APPEARS COMFORTABLE, RECTAL TEMP 96.9 AT THIS TIME, IMPROVED SINCE INITIATION OF ERIK AYALA. WILL ENDORSE THE PATIENT TO THE AM SHIFT NURSE FOR YOSELIN
[2017-07-09 06:45] LABS: CALCIUM, SERUM 8.3 mg/dL (8.5-10.1); CARBON DIOXIDE 28 mmol/L (21-32); CHLORIDE 117 mmol/L (98-107); CREATININE 1.1 mg/dL (0.6-1.3); GLUCOSE 113 mg/dL (74-106); MAGNESIUM 1.9 mg/dL (1.8-2.4); POTASSIUM 3.1 mmol/L (3.5-5.1); SODIUM SERUM 151 mmol/L (136-145); UREA NITROGEN, BLOOD 12 mg/dL (7-18)
[2017-07-09 06:46] LABS: BASOPHILS % (AUTO) 0.3 % (0.0-2.0); EOSINOPHILS # (AUTO) 1.3 /CMM (0.0-0.7); EOSINOPHILS % (AUTO) 14.1 % (0.0-6.0); HEMATOCRIT 28 % (33-45); HEMOGLOBIN 9.1 g/dL (11.5-14.8); LYMPHOCYTES # (AUTO) 0.6 /CMM (0.8-4.8); LYMPHOCYTES % (AUTO) 6.3 % (20.0-44.0); MEAN CORPUSCULAR HEMOGLOBIN 30 PG (26.0-33.0); MEAN CORPUSCULAR HGB CONC 32 g/dl (31.0-36.0); MEAN CORPUSCULAR VOLUME 93 fL (82-100); MONOCYTES # (AUTO) 0.6 /CMM (0.1-1.30); MONOCYTES % (AUTO) 6.2 % (2.0-12.0); NEUTROPHILS # (AUTO) 6.6 /CMM (1.8-8.9); NEUTROPHILS % (AUTO) 73.1 % (43.0-81.0); PLATELET COUNT (AUTO) 287 /CMM (150-450); RDW COEFFICIENT OF VARIATION 18.3 (11.5-15.0); RED BLOOD CELL COUNT(AUTO) 3.04 MIL/uL (4.0-5.2); WHITE BLOOD COUNT (AUTO) 9.1 K/uL (4.3-11.0)
--- NOTE | 2017-07-09 08:00 | NUR ---
TELE/RN INITIAL NOTES,AM RECEIVED REPORT FROM NIGHT NURSE. PT OPENS EYES, DOES NOT FOLLOW COMMANDS. PT ON VENT SETTINGS ORDERED BY MD, NO ACUTE DISTRESS NOTED. PT SCHEDULED FOR COLONOSCOPY AT 0900. CONSENT AND CHECKLIST IN CHART. GTUBE CLAMPED, PT NPO SINCE MIDNIGHT. DAILY LABS DONE, WILL REPLACE LOW POTASSIUM. ALL NEEDS WILL BE MET, SAFETY MEASURES TAKEN, BED IN LOW POSITION, SIDE RIALS UP, CALL LIGHT WITHIN REACH. WILL CONTINUE CARE
--- NOTE | 2017-07-09 09:56 | NUR ---
TELE/RN: ALL AM MEDS HELD, PT IS NPO FOR SURGERY. MD MCCURDY
--- NOTE | 2017-07-09 10:45 | NUR ---
TELE/RN: COLONOSCOPY DONE BY . NO NEW ORDERS AT THIS TIME. PT STABLE, VSS. NO ACUTE S/S OF BLEEDING. PT RECOVERED. PT CONTINUES TO BE ON VENT WITH SETTINGS ORDERED BY MD, NO ACUTE DISTRESS NOTED. WILL CONTINUE TO MONITOR AND ASSESS
--- NOTE | 2017-07-09 18:50 | NUR ---
ICU/RN ENDING NOTES,AM REPORT WILL BE ENDORSED TO NIGHT NURSE FOR CONTINUATION OF CARE. PT ON VENT SETTINGS ORDERED BY MD, NO ACUTE DISTRESS NOTED. PT RESTARTED ON TUBE FEEDING, TOLERATING WELL. POTASSIUM REPLACED, IV FLUIDS INFUSING ORDERED. MIDLINE PATENT AND INTACT, NO S/S OF INFECTION OR INFILTRATION NOTED. WILL CONTINUE CARE
--- NOTE | 2017-07-09 20:00 | NUR ---
COMMERCIAL SHRIMPING CAPTAIN NOTES RECEIVED PT IN BED, AWAKE, A/O X1, PERIODS OF CONFUSION. NODS AND ABLE TO UNDERSTAND SIMPLE CONCEPTS AND COMMANDS. TELE READS ST AT 110 BPM. ON VENT VIA [place] 8 AT ORDERED SETTINGS, L[place] WELL, SPO2 >99%. GTUBE IN PLACE, RUNNING FIBERSOURCE AT 40 ML/HR, NO RESIDUAL. MERCEDES 18G MIDLINE, RUNNING D5NS AT 75 ML/HR. MILD NONPITTING EDEMA AT RIGHT UPPER FOREARM. BILATERAL SOFT WRIST RESTRAINTS DUE TO PT PULLING ON LINES. HOB ELEVATED, CALL LIGHT WITHIN REACH, TURNED AND REPOSITIONED, ALL NEEDS MET.
[2017-07-10] VITALS (9 sets, daily range): BP systolic 112–137; BP diastolic 55–82
--- NOTE | 2017-07-10 | NUR ---
LINING FELLER BLINDSTITCH NOTES PT SLEEPS INTERMITTENTLY. SUCTIONED ORALLY AND TRACH WITH MODERATE SECRETIONS. PT DENIES PAIN. TURNED AND REPOSITIONED.
--- NOTE | 2017-07-10 04:00 | NUR ---
AUTOMOBILE RADIO REPAIRER NOTES PT IS RESTING COMFORTABLY. NO S/S OF DISTRESS OR DISCOMFORT. GTF REMAINS RUNNING WITH NO RESIDUAL. TURNED AND REPOSITIONED, EXTREMITIES OFFLOADED.
[2017-07-10 06:53] LABS: CALCIUM, SERUM 7.9 mg/dL (8.5-10.1); CARBON DIOXIDE 28 mmol/L (21-32); CHLORIDE 118 mmol/L (98-107); CREATININE 1.1 mg/dL (0.6-1.3); GLUCOSE 133 mg/dL (74-106); POTASSIUM 3.6 mmol/L (3.5-5.1); SODIUM SERUM 151 mmol/L (136-145); UREA NITROGEN, BLOOD 10 mg/dL (7-18)
--- NOTE | 2017-07-10 07:33 | NUR ---
DEPUTY PROGRAM MANAGER NOTES RECEIVED PT IN BED, AWAKE, A/O X1, PERIODS OF CONFUSIONTELE READS ST AT 110 BPM. ON VENT TO TRACH SETTING ORDERED , AMBU BAG AT HOB, AT ORDERED SETTINGS, TOLERATED WELL, SPO2 >99%. GTUBE IN PLACE, RUNNING FIBERSOURCE AT 40 ML/HR, NO RESIDUAL. MERCEDES 18G MIDLINE, RUNNING D5NS AT 75 ML/HR. MILD NONPITTING EDEMA AT RIGHT UPPER FOREARM KEEP ELEVATED ON PILLOW TOLERATED . BILATERAL SOFT WRIST RESTRAINTS DUE TO PT PULLING ON LINES CALL LIGHT WITHIN REACH, TURNED AND REPOSITIONED, ALL NEEDS MET. BED LOCKED AND LOWEST POSITION ,RT AT BEDSIDE, WILL CONT TO MONITOR CLOSELY
--- NOTE | 2017-07-10 10:30 | NUR ---
ASSEMBLY LINE INSPECTOR NOTE CONT ON GTUBE FEEDING ORDERED, ON IVF ORDERED ,NOT IN ACUTE DISTRESS, WILL CONT TO MONITOR CLOSELY Addendum: 07/10/17 at 1305 by JEREMIAH HUNTER RN [id number] NOTED TYRONE AGITATED DUE TO SCRATCHING HER BODY , ATARAX 25 MG VIA G TUBE GIVEN ORDERED , KEEP CLEAN DRY ,WILL CONT TO MONITOR ACCORDANTLY
--- NOTE | 2017-07-10 13:05 | NUR ---
TANKER DRIVER NOTE MATTEO RN SHOT POLISHER AND INSPECTOR NOTIFIED THAT NA TODAY STILL 151 ,ORDERED TO FLUSH G TUBE WITH 200 ML Q6 HOUR ALSO STOP IVF ,ORDER CARRIED OUT
--- NOTE | 2017-07-10 15:15 | NUR ---
COMPUTER PROGRAMMING MANAGER NOTE STILL C\O ITCHINESS ON BODY .BENADRYL 25 MG IVP GIVEN ORDERED , WILL CONT TO MONITOR CLOSELY . KEEP CLEAN DRY , TURN, REPOSITION Q2 HOUR , BED IN LOWEST AND LOCKED POSITION
--- NOTE | 2017-07-10 18:26 | NUR ---
MARKETING STRATEGY ANALYST NOTE ALL NEEDS ATTENDED, NOT IJN ACUTE DISTRESS, CONT TUBE FEEDINGS ORDERED ,KEEP HOB ELEVATED AT ALL TIME ,UNABLE TO RELEASE RESTRAIN, PATIENT STILL AT RISK TO POOL ALL LINES AND TRACH , WILL MONITOR CLOSELY
[2017-07-11] VITALS: BP_SYST 117; BP_SYST 128; BP_DIAS 63; BP_DIAS 71
--- NOTE | 2017-07-11 | NUR ---
NOTED PATIENT WITH RECTAL TEMP OF 94.4, EXTREMITIES WARM TO TOUCH. BARE HUGGER PLACED. WILL CONTINUE TO MONITOR.
[2017-07-11 04:00] VITALS: BP_SYST 103; BP_SYST 116; BP_DIAS 54; BP_DIAS 64
--- NOTE | 2017-07-11 06:21 | NUR ---
DISK SANDER CLOSING NOTES NO SIGNIFICANT CHANGES OVERNIGHT. PATIENT STILL WITH ERIK HUGGER, WITH RECTAL TEMP OF 94.4. NO RESPIRATORY DISTRESS NOTED. TOLERATING VENT SETTINGS AC 18, VT 550, FIO2 35%, PEEP 5. SR ON TELE MONITOR. TOLERATING GTF 40ML/HR, NO RESIDUAL NOTED. GIVEN FREE WATER 200ML Q6H. ALL NEEDS ANTICIPATED AND MET. KEPT CLEAN AND DRY. TURNED AND REPOSITIONED Q2 AND PRN. SIDE RAILS UP AND LOCKED. BED KEPT AT LOWEST POSITION. WILL ENDORSE CONTINUITY OF CARE TO AM NURSE.
[2017-07-11 06:43] LABS: CALCIUM, SERUM 7.9 mg/dL (8.5-10.1); CARBON DIOXIDE 27 mmol/L (21-32); CHLORIDE 115 mmol/L (98-107); GLUCOSE 131 mg/dL (74-106); POTASSIUM 3.7 mmol/L (3.5-5.1); SODIUM SERUM 147 mmol/L (136-145); UREA NITROGEN, BLOOD 12 mg/dL (7-18)
[2017-07-11 08:00] VITALS: BP 117/75
--- NOTE | 2017-07-11 11:57 | NUR ---
RN NOTE TELEPHONE ORDER FROM MATTEO KINGSLEY FOR STAT H+H FOR EPOGEN ADMIN
[2017-07-11 12:00] VITALS: BP 113/65
[2017-07-11 12:15] LABS: HEMOGLOBIN 9.5 g/dL (11.5-14.8)
--- NOTE | 2017-07-11 14:08 | NUR ---
RN NOTE PER PHARMACIST HENRRY LOVE TO ADMIN EPOGEN 100 UNITS AND 4000 UNITS AT SAME TIME. PER DAJA THERAPEUTIC RECREATION DIRECTOR AND MATTEO KINGSLEY, HOLD DISCHARGE ORDER AT THIS TIME,.
[2017-07-11 16:00] VITALS: BP 116/64
--- NOTE | 2017-07-11 19:01 | NUR ---
END OF SHIFT NO ACUTE EVENTS, NO SIGNIFICANT CHANGE OF CONDITION. TOLERATING VENT AND GT FEEDING. PATIENT LESS AGITATED S/P ATIVAN ADMINISTRATION (PULLING AGAINST RESTRAINTS AND KICKING). ADL CARE RENDERED. NEEDS MET. COMFORT PROVIDED. CALL LIGHT IN REACH. WILL INFORM NIGHT NURSE OF CONDITION AND PLAN.
[2017-07-11 20:00] VITALS: BP 95/62
[2017-07-12] VITALS (7 sets, daily range): BP systolic 104–126; BP diastolic 60–66
--- NOTE | 2017-07-12 07:34 | NUR ---
DICE MANAGER CLOSING NOTES NO SIGNIFICANT CHANGES NOTED. NO RESPIRATORY DISTRESS NOTED. NO PAIN OR DISCOMFORT NOTED. TOLERATING GTF. KEPT CLEAN AND DRY. TURNED AND REPOSITIONED Q2 AND PRN. WOUND TX DONE ORDERED. RIGHT WRIST RESTRAINT RELEASED AT THIS TIME, RIGHT ARM ELEVATED. ISOLATION PRECAUTIONS OBSERVED. HOB ELEVATED. SIDE RAILS UP AND LOCKED. BED KEPT AT LOWEST POSITION . CONTINUITY OF CARE ENDORSED TO AM NURSE.
--- NOTE | 2017-07-12 13:00 | NUR ---
RN NOTE SEEN AND EXMAINED BY MATTEO KINGSLEY. BIN TRIPPER OPERATOR AWARE OF GENERALIZED EDEMA, PITTING IN BL UE +2. AWARE OF GENERALIZED RASH AND ITCHING. MATTEO SAID GIVE BENADRYL PRN
--- NOTE | 2017-07-12 19:42 | NUR ---
HEAD LOFT WORKER INITIAL NOTES RECEIVED PATIENT AWAKE, NON-VERBAL, RESPONSIVE TO TOUCH. NO RESPIRATORY DISTRESS NOTED, WITH VENT SETTINGS AC 18, VT 550, FIO2 35%, PEEP 5. TRACH C/D/I. NO S/S OF PAIN OR DISCOMFORT. SKIN WARM AND DRY TO TOUCH. ON TELE MONITOR SR. GT, PATENT, INTACT, NO RESIDUAL NOTED. HOB ELEVATED. SIDE RAILS UP AND LOCKED. BED KEPT AT LOWEST POSITION. ISOLATION PRECAUTIONS OBSERVED. WILL CONTINUE TO MONITOR.
[2017-07-13] VITALS (9 sets, daily range): BP systolic 99–117; BP diastolic 40–67
--- NOTE | 2017-07-13 06:43 | NUR ---
AIRCRAFT ENGINE DISMANTLER CLOSING NOTES ENDORSED PATIENT AWAKE, NON-VERBAL, RESPONSIVE TO TOUCH. NO RESPIRATORY DISTRESS NOTED, WITH VENT SETTINGS AC 18, VT 550, FIO2 35%, PEEP 5. TRACH C/D/I. NO S/S OF PAIN OR DISCOMFORT. SKIN WARM AND DRY TO TOUCH. ON TELE MONITOR SR. GT, PATENT, INTACT, NO RESIDUAL NOTED. HOB ELEVATED. SIDE RAILS UP AND LOCKED. BED KEPT AT LOWEST POSITION. ISOLATION PRECAUTIONS OBSERVED. WILL CONTINUE TO MONITOR.
--- NOTE | 2017-07-13 07:30 | NUR ---
VIDEO OPERATOR INITIAL NOTES RECEIVED PATIENT ASLEEP, NON-VERBAL, RESPONSIVE TO TOUCH. NO RESPIRATORY DISTRESS NOTED, WITH VENT SETTINGS AC 18, VT 550, FIO2 35%, PEEP 5. TRACH C/D/I. NO S/S OF PAIN OR DISCOMFORT. SKIN WARM AND DRY TO TOUCH. ON TELE MONITOR SR. GT, PATENT, INTACT, NO RESIDUAL NOTED. HOB ELEVATED. SIDE RAILS UP AND LOCKED. BED KEPT AT LOWEST POSITION. ISOLATION PRECAUTIONS OBSERVED. WILL CONTINUE TO MONITOR.
--- NOTE | 2017-07-13 16:00 | NUR ---
RN NOTE PATIENT DIAPER CHANGED X 2 TIME PATIENT TURNED AND REPOSTIONED X 2QHR
--- NOTE | 2017-07-13 18:58 | NUR ---
TECHNICAL STENOGRAPHER CLOSING NOTES PATIENT ASLEEP, NON-VERBAL, RESPONSIVE TO TOUCH. IN BILATERAL RESTRAINTS NO RESPIRATORY DISTRESS NOTED, WITH VENT SETTINGS AC 18, VT 550, FIO2 35%, PEEP 5. TRACH C/D/I. NO S/S OF PAIN OR DISCOMFORT. SKIN WARM AND DRY TO TOUCH. ON TELE MONITOR SR. GT, PATENT, INTACT, NO RESIDUAL NOTED. HOB ELEVATED. SIDE RAILS UP AND LOCKED. BED KEPT AT LOWEST POSITION. ISOLATION PRECAUTIONS OBSERVED. RN WILL ENDORSED TO PM SHIFT
--- NOTE | 2017-07-13 20:00 | NUR ---
telecom network manager notes received pts on bed remains on vent ac settings well tolerated , hob elevated for aspiration precaution ,suction secretion done and prn. on tele sr on the monitor sating 98% no sob no distress noted with ml on aamir intact and patent , gt feeding well tolerated no residual noted , all needs attended too call light within reach , all due meds given as ordered , captopril dose for 9pm was hold d/t bp 90/40, pts on bilateral wrist restraint to prevent pulling invasive tubing, on contact isolation precautionary measures observed all the time.kept pts clean dry and comfortable, pts is afebrile.
[2017-07-14] VITALS: BP 113/61
--- NOTE | 2017-07-14 | NUR ---
telephone service representative notes blood sugar for 12mn is 135 mg/dl 2 units of regular insulin given per sliding scale , will check blood sugar again at 6am, pts on gt feeding, will continue to monitor pts.
[2017-07-14 04:00] VITALS: BP 105/65
--- NOTE | 2017-07-14 05:00 | NUR ---
telegraph messenger notes capoten dose for 5am not given d/t bp 90/6o
--- NOTE | 2017-07-14 05:58 | NUR ---
teletype clerk notes blood sugar for 6am is 96 mg/di no coverage given per sliding scale. pts continue on gt feeding , remains on vent setting well tolerated . no significance change noted . will endorse to rn day shift for continuity of care.
[2017-07-14 08:00] VITALS: BP_SYST 112; BP_SYST 135; BP_DIAS 58; BP_DIAS 81
[2017-07-14 12:00] VITALS: BP 111/63
[2017-07-14 13:00] VITALS: BP 111/63
--- NOTE | 2017-07-14 14:26 | NUR ---
RN NOTE RN NOTIFIED MELLY FELIPE IN REGARDS TO PATIENT EPOGEN SCHEDULED , AND NEED FOR HEMOGLOBIN LEVELS MELLY KINGSLEY STATES D/C EPOGEN SHOT FOR TODAY CONTINUE WITH PLANNED D/C . PATIENT BED BATH ADMINISTERED AND EVENING MEDICATION GIVEN PER SCHEDULED
--- NOTE | 2017-07-14 16:45 | NUR ---
RN NOTE REPORT CALLED AND GIVEN TO JERROD BIGGS AT [facility] DISCHARGE INSTRUCTIONS GIVEN TO EMS , BOTH PARTIES ACKNOWLEDGED ALL VITALS STABLE AT THIS TIME PATIENT NEEDS ATTENDED PATIENT WITH EMS AT THIS TIME ALONG WITH RT . RN WILL COONTINUE TO FOLLOW THROUGHOUT DISCHARGE .
--- NOTE | 2017-07-14 17:19 | NUR ---
RN NOTE PATIENT DISCHARGED NO ISSUES NOTED PATIENT VITALS STABLE PT RESPIRATORY SYSTEM STABLE NO SOB NOTED
== END 2017-07-14 17:13 | DRG 870 ==
LOC: ER 19:39 → TELE-TD 22:55 → TELE1 07-08 09:50
PROVIDERS: ADMIT Internal Medicine; ATTEND Internal Medicine
PROC: 5A1955Z Respiratory Ventilation, Greater than 96 Consecutive Hours (ICD-10-PCS; principal; 2017-07-03)
PROC: 05H533Z Insertion of Infusion Device into Right Subclavian Vein, Percutaneous Approach (ICD-10-PCS; 2017-07-04)
PROC: 30233N1 Transfusion of Nonautologous Red Blood Cells into Peripheral Vein, Percutaneous Approach (ICD-10-PCS; 2017-07-05)
PROC: 0DBN8ZX Excision of Sigmoid Colon, Via Natural or Artificial Opening Endoscopic, Diagnostic (ICD-10-PCS; 2017-07-09)
DX: A41.9 Sepsis, unspecified organism (principal); J96.22 Acute and chronic respiratory failure with hypercapnia; G93.6 Cerebral edema; Z99.11 Dependence on respirator [ventilator] status; G93.40 Encephalopathy, unspecified; N17.9 Acute kidney failure, unspecified; K25.4 Chronic or unspecified gastric ulcer with hemorrhage; E87.0 Hyperosmolality and hypernatremia; L89.323 Pressure ulcer of left buttock, stage 3; R53.2 Functional quadriplegia; D68.59 Other primary thrombophilia; N39.0 Urinary tract infection, site not specified; J44.1 Chronic obstructive pulmonary disease with (acute) exacerbation; C79.31 Secondary malignant neoplasm of brain; L89.150 Pressure ulcer of sacral region, unstageable; L89.810 Pressure ulcer of head, unstageable; Z93.0 Tracheostomy status; E11.22 Type 2 diabetes mellitus with diabetic chronic kidney disease; Z91.81 History of falling; B96.20 Unspecified Escherichia coli [E. coli] as the cause of diseases classified elsewhere; E83.42 Hypomagnesemia; E78.5 Hyperlipidemia, unspecified; E83.51 Hypocalcemia; E87.6 Hypokalemia; Z86.73 Personal history of transient ischemic attack (TIA), and cerebral infarction without residual deficits; Z66 Do not resuscitate; Z87.440 Personal history of urinary (tract) infections; N18.9 Chronic kidney disease, unspecified; I12.9 Hypertensive chronic kidney disease with stage 1 through stage 4 chronic kidney disease, or unspecified chronic kidney disease; E86.0 Dehydration; K21.9 Gastro-esophageal reflux disease without esophagitis; R13.10 Dysphagia, unspecified; D63.8 Anemia in other chronic diseases classified elsewhere; D47.3 Essential (hemorrhagic) thrombocythemia; Z93.1 Gastrostomy status; D50.0 Iron deficiency anemia secondary to blood loss (chronic); G93.89 Other specified disorders of brain; K57.30 Diverticulosis of large intestine without perforation or abscess without bleeding; K64.8 Other hemorrhoids; K52.9 Noninfective gastroenteritis and colitis, unspecified; Z51.5 Encounter for palliative care; F03.90 Unspecified dementia, unspecified severity, without behavioral disturbance, psychotic disturbance, mood disturbance, and anxiety; R90.89 Other abnormal findings on diagnostic imaging of central nervous system; R65.20 Severe sepsis without septic shock
CPT/HCPCS: 31720; 36415; 36600; 70450-TC; 71010-TC; 80048-TC; 80053-TC; 80076-TC; 81000-TC; 82140-TC; 82272-TC; 82553-TC; 82803-TC; 82962-TC; 83605-TC; 83735-TC; 84100-TC; 84484-TC; 85025-TC; 85027-TC; 85385-TC; 85610-TC; 85730-TC; 86850-TC; 86921-TC; 87040-TC; 87081-TC; 87086-TC; 87186-TC; 88305-TC; 93307-TC; 94002-TC; 94003-TC; 94760-TC; 94762-TC; 99082-TC; A4606; A6248; A6253; A6402; A7526; C9113; J0696; J0885; J1200; J1815; J1953; J2060; J2185; J2543; J2704; J3370; J3475; J3480; J7030; J7042; J7050; J7060; J7517; P9016-BL; Q0177

== ENCOUNTER 2017-08-03 19:54 | Emergency (ER) | payer MEDICARE, MEDICAID ==
[~2017-08-03] VITALS: Ht 160 cm; Wt 63.5 kg
[~2017-08-03 19:54] MED LIST changes: +ACET-73 GT; -ASPI81TA2 GT; -DOCU50LI GT; +HYDR-3026 GT; +LEVE100S GT; +MIRT15TA GT; +NITR0.4T6 SL; -PRED2.5T GT
[2017-08-03 20:00] VITALS: BP 119/73
[2017-08-03] MEDS ORDERED: DIATR MEGLU/DIATRIZOATE SODIUM 30 ML BOTTLE (GASTROGRAPHIN) ONE (20:06)
== END 2017-08-03 21:15 ==
LOC: ER 19:55
DX: Z43.1 Encounter for attention to gastrostomy (principal); I12.9 Hypertensive chronic kidney disease with stage 1 through stage 4 chronic kidney disease, or unspecified chronic kidney disease; N18.9 Chronic kidney disease, unspecified; K21.9 Gastro-esophageal reflux disease without esophagitis; E11.9 Type 2 diabetes mellitus without complications; Z88.1 Allergy status to other antibiotic agents; Z88.8 Allergy status to other drugs, medicaments and biological substances
CPT/HCPCS: 43760; 74000; 99284; A4606; Q9963; Z7610